=== PATIENT | male | born 1935 | race Caucasian/White ===

== ENCOUNTER 2024-09-07 05:49 | Outpatient (REF) | payer MEDICARE, SELFPAY ==
[2024-09-07 05:54] LABS: MANUAL DIFF FLAG NO
--- OUTSIDE RECORDS SUMMARY | 2024-09-07 05:54 | XMS_ITS | Continuity of Care Document ---
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 Name Role Phone Not on Staff, PCP Primary Care Physician Unavail able Encounter [facility] [place] Date(s): 08/17/24 - 08/24/[address] [id number] Discharge Disposition: Disch/Trans to IP Rehab or unit w/in Hos Attending Physician: Kaylee Lal MD Admitting Physician: Denny Mendoza MD Referring Physician: Not on Staff, Referring MD Encounter Type: Disch IP Allergies, Adverse Reactions, Alerts No Known Allergies Medications atorvastatin 80 mg oral tablet 1 tablet = 80 mg, By Mouth, Daily, # 30 tablet, 5 Refills, Maintenance, 08/17/24 2:54:00 PM EST, Tablet, Partial fill upon patient request if the prescription is for a schedule II opioid drug. Start Date: 08/17/24 Status: Ordered Quantity: 30.0 Unit: tablet Repeat number: 1 esomeprazole 40 mg oral enteric coated capsule 1 capsule = 40 mg, By Mouth, Daily, # 30 capsule, 0 Refills, Maintenance, 08/17/24 2:55:00 PM EST, EC Capsule, Partial fill upon patient request if the prescription is for a schedule II opioid drug. Start Date: 08/17/24 Status: Ordered Quantity: 30.0 Unit: capsule Repeat number: 1 ezetimibe 10 mg oral tablet 1 tablet = 10 mg, By Mouth, Daily, # 30 tablet, 0 Refills, Maintenance, 08/17/24 2:55:00 PM EST, Tablet, Partial fill upon patient request if the prescription is for a schedule II opioid drug. Start Date: 08/17/24 Status: Ordered Quantity: 30.0 Unit: tablet Repeat number: 1 Potassium/Sodium Phosphates Oral Powder 1 pack/packet, By Mouth, 2 times a day, 0 Refills, Maintenance, 08/23/24 12:46:00 PM EST, Oral Powder, Partial fill upon patient request if the prescription is for a schedule II opioid drug. 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 FINDINGS: LINES AND TUBES: Unchanged pigtail pleural drainage catheter in the right chest. LUNGS AND PLEURA: Overall, likely no significant change in loculated pneumothorax. Hazy opacity in the right lung, consistent with atelectasis. Air-fluid level identified in the lateral projection consistent with developing pleural fluid within the right pneumothorax. The left lung remains clear. No left pneumothorax or significant effusion. HEART, MEDIASTINUM AND JUVENAL: No significant interval change in the cardiomediastinal contours. BONES AND SOFT TISSUES: No acute abnormality. IMPRESSION: 1. Stable right pleural drain. 2. Likely fluid developing in the loculated pneumothorax in the right chest. WSN: [id number] Ordering Physician: Chrystal Beltran Dictated By: Isarel Kwok MD Dictated Date/Time: 08/21/24 5:32 pm Reviewed By: Israel Kwok MD Signed By: Israel Kwok MD Signed Date/Time: 08/21/24 5:32 pm Transcribed By: SACHI Transcribed Date/Time: 08/21/24 5:29 pm * Exam Date Time Procedure Performing Provider Status 08/20/24 11:[address] Chest W/O Contrast Norman Gilmore; Auth (Verified) Notes: (CT Chest W/O Contrast) Reason For Exam: pneumothorax;Other: RESULT: CT Chest W/O Contrast CT Chest W/O Contrast INDICATION: pneumothorax, PF fistula TECHNIQUE: Helical CT scan of the chest without IV contrast, formatted in 3 planes. Weight-based protocol was performed using automatic exposure control. COMPARISON: 08/17/2024 FINDINGS: Traveling Missionary view findings, lines and tubes: Right pleural pigtail catheter. Trachea and airways: Patent without evidence of tracheal or endobronchial lesion. Lungs and pleura: Significantly decreased right pleural effusion, with small amount of residual right pleural effusion. Moderate amount of pneumothorax on the right. Right pleural thickening with more focal nodular opacity in the periphery of the right upper lobe measuring 2.4 x 1.9 x 2.9 cm. Thereis associated volume loss and swelling of the bronchovascular vasculature. The right lung has significantly reinflated on comparison CT. Left lung and pleural space are clear aside from mild dependent atelectasis. Mediastinum and juvenal: No mass or hematoma. No mediastinal or hilar lymphadenopathy. No esophageal abnormality. Heart: Heart is normal in size. No pericardial effusion. Severe coronary artery calcification. Aorta: Moderate vascular calcification but no aneurysm. Pulmonary arteries: Normal caliber. Chest wall soft tissues: No acute abnormality. Diaphragm: Intact. Upper abdomen: Gallbladder contains vicariously excreted contrast. Subcentimeter hepatic hypodensities, too small to characterize. Bones: No acute abnormality. Degenerative changes of the spine. IMPRESSION: Significantly decreased right pleural effusion with persistent right hydropneumothorax. No bronchopleural fistula identified. Nodular opacity in the periphery of the right upper lobe could be round atelectasis or neoplasm. Recommend attention on follow-up. If warranted, PET/CT could be considered. WSN: [id number] Ordering Physician: Paco Osorio Dictated By: Cisco Noe MD Dictated Date/Time: 08/20/24 11:54 a Reviewed By: Cisco Noe MD Signed By: Cisco Noe MD Signed Date/Time: 08/20/24 11:54 am Transcribed By: SACHI Transcribed Date/Time: 08/20/24 11:48 am * Exam Date Time Procedure Performing Provider Status 08/20/24 7:50 AM Chest Portable Joanna Donald; Auth ( Verified) Notes: (Chest Portable) Reason For Exam: change in pneumothorax;Other: RESULT: Chest Portable Chest Portable semiupright at 7:41 AM Reason: change in pneumothorax; Clinical Question(s): Pneumothorax COMPARISON: Chest radiograph 08/19/2024 and multiple priors FINDINGS: LINES AND TUBES: Right pigtail pleural catheter at the lower hemithorax. LUNGS AND PLEURA: Slightly decreased right basilar pneumothorax. Resolution of the right pleural effusion. Airspace opacity at the right lung base, unchanged, likely atelectasis. HEART, MEDIASTINUM AND JUVENAL: Heart is normal in size. Aorta is mildly calcified. BONES AND SOFT TISSUES: No acute abnormality. IMPRESSION: Slightly decreased right basilar pneumothorax. Resolution of the right pleural effusion. I have personally reviewed the images and I agree with this report. WSN: [id number] Ordering Physician: Paco Osorio Dictated By: Betty Le MD Dictated Date/Time: 08/20/24 8:35 am Reviewed By: Erick Rangel MD Signed By: Erick Rangel MD Signed Date/Time: 08/20/24 8:40 am Transcribed By: SACHI Transcribed Date/Time: 08/20/24 8:24 am * Exam Date Time Procedure Performing Provider Status 08/19/24 11:47 AM Chest Portable Maggy Stuart; Modified Notes: (Chest Portable) Reason For Exam: Effusion f/u;Tube Placement ADDENDUM: Chest Portable The initial impression is correct with error in the body of the report, the corrected report is as follows: Chest Portable Reason: Tube Placement; Effusion f u; Clinical Question(s): Line Placement; Effusion f u COMPARISON: 08/17/2024 FINDINGS: LINES AND TUBES: Right-sided pigtail type catheter directed at the lower hemithorax medially LUNGS AND PLEURA: Interval decrease in right-sided pleural effusion with trace pleural fluid and with increase in pneumothorax, moderate in volume. Partially atelectatic right lung. No tension component with slight rightward cardiomediastinal shift persisting. HEART, MEDIASTINUM AND JUVENAL: Heart is normal in size. No change BONES AND SOFT TISSUES: No acute abnormality. IMPRESSION: Interval decrease in right-sided pleural effusion with trace pleural fluid and with moderate pneumothorax volume. Partially atelectatic right lung. No tension component with slight rightward cardiomediastinal shift persisting. This RIGHT pneumothorax is at the right lung base. Confirmation of moderate pneumothorax was made to Dr. Paco Helbig at 1559 on day of exam. WSN: [id number] Ordering Physician: Magdiel Fritz Dictated By: Lyndsay Fontana MD Dictated Date/Time: 08/19/24 4:03 pm Reviewed By: Lyndsay Fontana MD Signed By: Lyndsay Fontana MD Signed Date/Time: 08/19/24 4:03 pm Transcribed By: SACHI Transcribed Date/Time: 08/19/24 3:58 pm RESULT: Chest Portable Chest Portable Reason: Tube Placement; Effusion f u; Clinical Question(s): Line Placement; Effusion f u COMPARISON: 08/17/2024 FINDINGS: LINES AND TUBES: Right-sided pigtail type catheter directed at the lower hemithorax medially LUNGS AND PLEURA: Interval decrease in right-sided pleural effusion with trace pleural fluid and with increase in pneumothorax, moderate in volume. Partially atelectatic right lung. No tension component with slight rightward cardiomediastinal shift persisting. No pneumothorax. HEART, MEDIASTINUM AND JUVENAL: Heart is normal in size. No change BONES AND SOFT TISSUES: No acute abnormality. IMPRESSION: Interval decrease in right-sided pleural effusion with trace pleural fluid and with increase in pneumothorax with moderate pneumothorax volume. Partially atelectatic right lung. No tension component with slight rightward cardiomediastinal shift persisting. WSN: [id number] Ordering Physician: Magdiel Fritz Dictated By: Lyndsay Fontana MD Dictated Date/Time: 08/19/24 2:09 pm Reviewed By: Lyndsay Fontana MD Signed By: Lyndsay Fontana MD Signed Date/Time: 08/19/24 2:09 pm Transcribed By: SACHI Transcribed Date/Time: 08/19/24 2:08 pm * Exam Date Time Procedure Performing Provider Status 08/17/24 7:06 PM Chest Portable Kristofer , Carolina; Auth (Verified) Notes: (Chest Portable) Reason For Exam: Pleuritic Pain RESULT: Chest Portable Chest Portable Reason: Pleuritic Pain; Clinical Question(s): Pneumothorax COMPARISON: Priors, most recent dated earlier the same day FINDINGS: LINES AND TUBES: Right-sided pigtail drainage catheter again noted, terminating in the medial aspect of the lower hemithorax. LUNGS AND PLEURA: There is interval decrease in the previously noted large right-sided pleural effusion, now moderatein size, with partial aeration of the right mid to upper lung . No focal opacity in the left lung. No left pleural effusion. No pneumothorax. HEART, MEDIASTINUM AND JUVENAL: Heart is normal in size. Normal mediastinal and hilar contour. BONES AND SOFT TISSUES: No acute abnormality. IMPRESSION: Right-sided chest tube in situ Decrease in the right-sided pleural effusion with partial aeration of the right mid to upper lung, with persistent moderate right pleural effusion. No pneumothorax. WSN: [id number] Ordering Physician: Ulises Bautista Dictated By: Marlyn Corey MD Dictated Date/Time: 08/17/24 7:08 pm Reviewed By: Marlyn Corey MD Signed By: Marlyn Corey MD Signed Date/Time: 08/17/24 7:08 pm Transcribed By: SACHI Transcribed Date/Time: 08/17/24 7:06 pm * Exam Date Time Procedure Performing Provider Status 08/17/24 1:[address] Chest W/ Contrast Sumi Mercado; Auth (Verified) Notes: (CT Chest W/ Contrast) Reason For Exam: malignant effusion s/p pigtail, hx underlying lung malignancy;Other: RESULT: CT Chest W/ Contrast CT Chest W/ Contrast INDICATION: Reason: hx of underlying lung malignancy with malignant effusions [facility]. Malignant effusion s p pigtail, hx underlying lung malignancy; Clinical Question(s): Interstitial Alveolar Infiltration; Order Comment: TECHNIQUE: Helical CT scan of the chest with IV contrast, formatted in 3 planes. 75 cc of Isovue 300 was administered intravenously. Weight-based protocol was performed using automatic exposure control. COMPARISON: Chest radiograph 08/17/2024 FINDINGS: Traveling [employer] view findings, lines and tubes: Right pigtail catheter terminating in the right anterior pleural space Trachea and airways: Trachea and left main stem bronchi are patent. Lungs and pleura: Complete collapse of the right lung due to massive low density right pleural effusion. No definite mass is seen. Few micronodules in the left lung. No pneumothorax. Mediastinum and juvenal: No mass or hematoma. No mediastinal or hilar lymphadenopathy. No esophageal abnormality. Partially imaged thyroid is unremarkable. Heart: Heart is normal in size. No pericardial effusion. Severe coronary artery calcification. Aorta: Moderate vascular calcification but no aneurysm. Pulmonary arteries: Normal caliber. No evidence of pulmonary embolism on this study performed without angiographic technique. Chest wall soft tissues: No acute abnormality. Diaphragm: Intact. Upper abdomen: 2.7 cm gas-filled outpouching with arising from the medial aspect of the proximal degenerative territory representing a diverticulum (201:114). No surrounding inflammatory stranding. Subcentimeter hypodensity in the left hepatic lobe is too small to characterize. Colonic diverticulosis. Bones: No acute abnormality. Degenerative changes of the visualized spine. IMPRESSION: Complete collapse of the right lung due to large pleural effusion with placement of right pigtail catheter terminating in the anterior right pleural space. No pneumothorax. Please ensure pleural catheter is functioning properly and correlate with pleural fluid cytology. I have personally reviewed the images and I agree with this report. WSN: [id number] Ordering Physician: Leonel Rhodes Dictated By: Nasra Olmos DO Dictated Date/Time: 08/17/24 2:20 pm Reviewed By: Cisco Ramos MD Signed By: Cisco Ramos MD Signed Date/Time: 08/17/24 2:25 pm Transcribed By: SACHI Transcribed Date/Time: 08/17/24 2:02 pm * Exam Date Time Procedure Performing Provider Status 08/17/24 11:30 AM Chest Portable Shady , Fern; Auth (Verified) Notes: (Chest Portable) Reason For Exam: s/p chest tube;Tube Placement RESULT: Chest Portable Chest Portable Hx of Present Illness: see brianda level 1; Reason: Tube Placement; s p chest tube; Clinical Question(s): Tube Placement COMPARISON: 08/17/2024 chest radiograph. FINDINGS: LINES AND TUBES: A right-sided chest tube overlies the right midlung. LUNGS AND PLEURA: Complete opacification of the right hemithorax, representing a combination of atelectasis, consolidation and/or effusion similar to prior study. Left lung is clear. HEART, MEDIASTINUM AND JUVENAL: Heart is normal in size. Normal mediastinal and hilar contour. BONES AND SOFT TISSUES: No acute abnormality. IMPRESSION: Complete opacification of the right hemithorax, similar to prior study. Chest tube has been placed. WSN: [id number] Ordering Physician: Leonel Rhodes Dictated By: Kodak Mcclendon MD Dictated Date/Time: 08/17/24 1:02 pm Reviewed By: Kodak Mcclendon MD Signed By: Kodak Mcclendon MD Signed Date/Time: 08/17/24 1:02 pm Transcribed By: SACHI Transcribed Date/Time: 08/17/24 1:01 pm * Exam Date Time Procedure Performing Provider Status 08/17/24 10:38 AM Chest Portable Fern Caruso; Beth (Verified) Notes: (Chest Portable) Reason For Exam: Shortness of Breath RESULT: Chest Portable Examination: Portable chest performed on 08/17/2024. History: Shortness of breath. Findings: A frontal view of the chest is submitted without comparison. The cardiac silhouette is obscured secondary to complete obscuration of the right thorax. Shift of the trachea to the left is present. The left lung is clear. The osseous structures are unremarkable. IMPRESSION: Complete opacification of the right thorax with mass effect on the mediastinum. This could be secondary to a large pleural effusion or mass. CT is recommended for further evaluation. WSN: [id number] Ordering Physician: Demar Ellis Dictated By: Ashley Perkins MD Dictated Date/Time: 08/17/24 10:59 a Reviewed By: Ashley Perkins MD Signed By: Ashley Perkins MD Signed Date/Time: 08/17/24 10:59 am Transcribed By: SACHI Transcribed Date/Time: 08/17/24 10:58 am Vital Signs Most recent to oldest [Reference Range]: 1 2 3 Height 167 cm (08/24/24 2:53 PM) 167 cm (08/24/24 12:04 PM) 167 cm (08/24/24 8:15 AM) Weight 80.7 kg (08/24/24 6:26 AM) 80.9 kg (08/23/24 6:34 AM) 80.9 kg (08/22/24 7:04 AM) Oxygen Saturation [94-100 %] 97 % (08/24/24 2:53 PM) 96 % (08/24/24 12:04 PM) 96 % (08/24/24 8:15 AM) Pulse Rate [55-90 bpm] 90 bpm (08/24/24 2:53 PM) 86 bpm (08/24/24 12:04 PM) 82 bpm (08/24/24 8:15 AM) Body Mass Index [18.5-24.99 kg/m2] 34.42 kg/m2 *>HHI* (08/17/24 2:35 PM) Blood Pressure [90-138/55-84 mm Hg] 122/61mm Hg (08/24/24 2:53 PM) 130/61mm Hg (08/24/24 12:04 PM) 130/64mm Hg (08/24/24 8:15 AM) Respiratory Rate [16-30 br/min] 20 br/min (08/24/24 2:53 PM) 20 br/min (08/24/24 12:04 PM) 20 br/min (08/24/24 8:15 AM) Temperature [96.8-100.4 DegF] 98.6 DegF (08/24/24 2:53 PM) 97.9 DegF (08/24/24 12:04 PM) 97.3 DegF (08/24/24 8:15 AM) Liters per Minute 2 L/min (08/22/24 3:00 AM) 2 L/min (08/21/24 11:00 PM) 2 L/min (08/21/24 7:00 PM) Mode of Delivery (Oxygen) Room air (08/24/24 2:53 PM) Room air (08/24/24 12:04 PM) Room air (08/24/24 8:15 AM) Blood pressure sites Arm, right (08/24/24 2:53 PM) Arm, right (08/24/24 12:04 PM) Arm, right (08/24/24 8:15 AM) Temperature Route Oral (08/24/24 2:53 PM) Oral (08/24/24 12:04 PM) Oral (08/24/24 8:15 AM) Dry Weight 96 kg (08/17/24 2:35 PM) 86.1 kg (08/17/24 1:52 PM) 86.1 kg (08/17/24 1:47 PM) Weight Obtained Via Bed scale (08/24/24 6:26 AM) Bed scale (08/23/24 6:34 AM) Bed scale (08/22/24 7:04 AM) Consult note * Fletcher Souza MD: PERFORM Event Display: Consult Authored Date: [id number] Patient: ??NATO SCHROEDER ? Age:??89 Years?Sex:??Male?:??1935?? Chief Complaint/Reason for Consult Malignant pleural effusion,??pneumothorax ex vacuo History of Present Illness Mr. Schroeder is an 89-year-old male with history of prostate cancer s/p prostatectomy, carotid artery stenosis s/p CEA, CKD, and malignant pleural effusions who presented to [facility] with altered mental status,??hypertension,??bradycardia??thought to be 2/2??a vagal response from pleural effusion??volume. ??Thoracic surgery is consulted given??significant pneumothorax ex vacuo??with??pigtail catheter already in place??on the right. ??He is s/p??transcutaneous pacing and has been??weaned off of??pressors and oxygen completely.?? CT??chest obtained??today demonstrating??persistent right hydropneumothorax. ??The patient is??comfortable??on room air with some pain associated with the chest tube.??He denies shortness of breath,??chest pain,??fever chills, nausea or vomiting. Review of Systems 12 point ROS completed. Negative unless otherwise stated in HPI/subjective. Physical Exam Vitals & Measurements T:??98.3?F?? HR:??83??(Monitored)?? RR:??20?? BP:??94/62?? SpO2:??92%?? HT:??167??cm?? WT:??80.9??kg?? BMI:??34.42?? GENERAL: Alert and oriented to person, place, and time. No acute cardiopulmonary distress. Well developed & nourished. MENTAL STATUS:?? Normal affect. HEENT: Normocephalic. Extraocular muscles intact. Anicteric sclera. Ears without masses, lesions ordeformities. NECK: Supple, Full range of motion. No tracheal deviation, JVD, or palpable cervical lymphadenopathy. LUNGS: Nonlabored and symmetric on room air. ??Right pigtail chest tube in place??with??700 cc of serosanguineous output,??tube kinked??on exam.?? Unkinked and flush with??potts of air and??consistentexpiratory airleak??following. HEART: Regular rate and rhythm CHEST WALL: No surgical scars or chest wall deformities. ABDOMEN: Soft, non-tender, non-distended. NEUROLOGIC: No focal neurological deficits. Moves all extremities spontaneously. Sensation intact bilaterally. SKIN: No rashes or lesions. No petechiae or purpura. No edema. EXTREMITIES: Warm and well perfused. No gross deformities. Normal range of motion. Assessment/Plan Mr. Schroeder is an 89-year-old male with history of prostate cancer s/p prostatectomy, carotid artery stenosis s/p CEA, CKD, and malignant pleural effusions who presented to [facility] with altered mental status,??hypertension,??bradycardia??thought to be 2/2??a vagal response from pleural effusion??volume. ??Thoracic surgery is consulted given??significant pneumothorax ex vacuo??with??pigtail catheter already in place??on the right. ??He is s/p??transcutaneous pacing and has been??weaned off of??pressors and oxygen completely.?? CT??chest obtained??today demonstrating??persistent right hydropneumothorax. ??The patient is??comfortable??on room air. ??On evaluation the??right sided pigtail was??kinked and therefore not allowing??drainage of the pneumothorax.?? I flushed and unkinked the tube??which allowed for a large potts of air and??then a??consistent expiratory airleak. ??If the extent of the pneumothorax continues, the lung is likely trapped in??will not reexpand with a tube. ?? Recommendations: ??? Ensure current chest tube??is working properly ??? Consider IR guided Aspira catheter drain??for long-term management of the effusion ?? Discussed with Dr. Novoa Thoracic [id number] ?? Problem List/Past Medical History Ongoing Obese class I Procedure/Surgical History No qualifying data available. Home Medications Aspirin: 325 mg = 1 capsule, By Mouth, Daily Atorvastatin: 80 mg = 1 tablet, By Mouth, Daily Esomeprazole: 40 mg = 1 capsule, By Mouth, Daily Ezetimibe: 10 mg = 1 tablet, By Mouth, Daily Hydrochlorothiazide-Lisinopril: 1 tablet, By Mouth, Every 12 hours Metoprolol: 25 mg = 1 capsule, By Mouth, Daily Allergies NKA Family History No family history recorded. Lab Results Labs Last 24 Hours BLOOD COUNT & DIFF ? Event Name?? Event Result?? Date/Time?? WBC 8.3 k/mm3 08/20/24 04:35:00 RBC 3.5 m/mm3??Low 08/20/24 04:35:00 Hgb 10.4 Gm/dL??Low 08/20/24 04:35:00 Hct 32.5 %??Low 08/20/24 04:35:00 MCV 92.9 femtoliters 08/20/24 04:35:00 MCH 29.7 pg 08/20/24 04:35:00 MCHC 32 Gm/dL??Low 08/20/24 04:35:00 Platelet Count 187 k/mm3 08/20/24 04:35:00 MPV 11 femtoliters 08/20/24 04:35:00 Nucleated RBC (Automated) 0 #/100 WBC'S 08/20/24 04:35:00 ? CHEM GENERAL ? Event Name?? Event Result?? Date/Time?? Sodium 141 mmol/L 08/20/24 04:35:00 Chloride 107 mmol/L 08/20/24 04:35:00 Bicarbonate Level 21 mmol/L??Low 08/20/24 04:35:00 Anion Gap 13 08/20/24 04:35:00 Glucose Level 105 mg/dL??High 08/20/24 04:35:00 BUN 39 mg/dL??High 08/20/24 04:35:00 Creatinine-Blood 1.78 mg/dL??High 08/20/24 04:35:00 ? * Liam Nascimento MD: PERFORM Event Display: Consultation Note Authored Date: Patient: ??MARILYN SCHROEDERMOND ? Age:??89 Years?Sex:??Male?:??1935?? Indication for Consult see brianda level 1 History of Present Illness/Interval History [facility] Cardiology Consult Note Consult Reason: Mobitz I + II Outpatient University Librarian: None Requesting Provider: Dr Osorio Consulting Physician: Dr Tripp ?? 89-year-old male with history of prostate cancer s/p prostatectomy 1998, carotid artery stenosis s/p endarterectomy 2016, hyperlipidemia, and CKD3b, and??thoracic malignant effusions undergoing workup at [facility] -initially presented for AMS, hypotension, bradycardia. ??Was called??by EMS in the field initially noting??bradycardia??in 30s with junctional rhythm??and was??transcutaneously paced.?? Whenhe arrived to ED??he was briefly taken off pacing??and again became bradycardic/hypotensive??then restarted and put on Levophed drip. ??Had workup noting chest x-ray showing a large??pleural effusionwith mediastinal shift??which was decompressed??in the emergency room??with 1 L removed. ??His bradycardia then improved??but was still requiring??vasopressors??after additional IVF given.?He initially had EKG??showing sinus rhythm??at??11 AM ?? On admission, was admitted to MICU for shock suspected??secondary to bradycardia??which was in setting of??vagal??response from pleural effusion.?? Both his shock and bradycardia??improved??after thoracentesis.?In the evening at 2231??noted??to have??concern for AV block??on??telemetry. ??EKG performed at the time??showing sinus rhythm??Mobitz type I block.?? Review of telemetry??overnight andEKG performed at bedside??still with persistent Mobitz type I ? Speaking with the patient, his ,??daughter??he was having some dizziness at home. ??He is largely sedentary. ??No syncope. ??He was brought to the hospital for acute onset of dyspnea ? In his background,??has a history of malignant pleural effusions.?? Had an IR thoracentesis performed 08/05/2024 with 1 L dark red fluid removed.?? Is pending VATS pleural biopsy??for diagnosis??and??palliation of symptoms with [facility]. ?? Cardiac Home Meds:??Atorvastatin 80,??Zetia,??HCTZ???lisinopril 25???20,??MS 25 Current Meds (different than above):??Atorvastatin 80,??holding??home metoprolol/HCTZ/lisinopril ?? Data Reviewed: ???Vitals:??Heart rate 66???96??since being admitted to ICU. ??BP??80???110/35???65??[currently??99/55], 2 L nasal cannula ??? Labs:??Creatinine 2.15 ??? ECG:??Mobitz 1???2 heart block Review of Systems Constitutional, Eye, Skin, Head/Neck, ENMT, Respiratory, Cardiovascular, Gastrointestinal, Endocrine, Musculoskeletal, Neurologic, Psych reviewed and negative except as noted in HPI Physical Exam Vitals & Measurements T:??98.5?F?? HR:??86??(Monitored)?? RR:??18?? BP:??103/43?? SpO2:??93%?? HT:??167??cm?? WT:??81.4??kg?? BMI:??34.42?? Weight lb/oz: 179 lb 7 oz General Appearance: The patient is in NAD. Cardiovascular: RRR S1 and S2 heard with no M/R/G. No JVD. Respiratory:?Breath sounds clear to auscultation bilaterally. No wheezing. Good air movement throughout both lungs. MS:?No edema or erythema in the lower extremities. No wounds seen on the feet. Peripheral sensation intact.?? Neuro:?No slurred speech.?Patient seen moving their upper and lower extremities independently. Psych: Alert and oriented x3. Appropriate and pleasant. CAM negative. Assessment/Plan Orders: Echo Complete 89-year-old male with history of prostate cancer s/p prostatectomy 1998, carotid artery stenosis s/p endarterectomy 2017, hyperlipidemia, and CKD3b, and??thoracic malignant effusions undergoing workup at [facility] -for bradycardia??initially attributed to??vagal??compression by??pleural effusion.?? 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 ??He is asymptomatic currently but??was??feeling lightheaded at home prior to hospital presentation. ?? Initially??bradycardia was??attributed??to vagal compression by pleural effusion which may have very well been the case but it is unclear??given symptoms of dizziness at home??whether??heart block??proceeded hospital admission??or??occurred??during it. ??In any case??no high-grade??AV block is no champ,??on review of telemetry and EKG??have seen??exclusively Mobitz type I.?? Her metoprolol has been held so far??which I agree with.?? Favor continued monitoring??for now??and if??worsening??degreeof heart block??or convincing symptoms occur??we will reevaluate. ?? #Mobitz I-II HB #Pleural effusion, likely malignant ?? Recommendations: ???Keep on telemetry ???Daily EKG ???Avoid AV zoltan??blocking medications ???No indication for pacemaker currently ???We will get TTE ?? We will continue to follow ?? Findings and plan of care was discussed and agreed on with Dr. Tripp ?? Liam Nascimento MD Cardiovascular Disease Fellow, PGY-4 [facility] Connect / Pager: [phone] Allergies NKA Home Medications Aspirin: 325 mg = 1 capsule, By Mouth, Daily Atorvastatin: 80 mg = 1 tablet, By Mouth, Daily Esomeprazole: 40 mg = 1 capsule, By Mouth, Daily Ezetimibe: 10 mg = 1 tablet, By Mouth, Daily Hydrochlorothiazide-Lisinopril: 1 tablet, By Mouth, Every 12 hours Metoprolol: 25 mg = 1 capsule, By Mouth, Daily Hospital Medications Medications (8) Active SCHEDULED: (5) Atorvastatin 80 mg Tablet (atorvastatin 80 mg oral tablet) ??80 mg, By Mouth, Daily Calcium Gluconate (Calcium Gluconate Inj) ??1,000 mg, IV Push Slowly, Once Lansoprazole 30 mg OD Tablet (Lansoprazole OD Tablet) ??30 mg, By Mouth, Daily Lidocaine 5% Topical Patch (Lidocaine 5% Patch) ??2 each, Topically, Daily Remove Patch (Remove Lidocaine Patch) ??1 each, Topically, Daily at bedtime CONTINUOUS: (0) PRN: (3) Acetaminophen 325 mg Tablet (Acetaminophen Tablet) ??650 mg, By Mouth, Every 6 hours MorPHINE 2 mg Inj Syringe (MorPHINE Inj) ??2 mg, IV Push Slowly, Every 4 hours Ondansetron 2mg/mL Inj (2mL Vial) (Zofran Inj) ??4 mg, IV Push, Every 6 hours Lab Results Cardiology Labs WBC: 9.5 k/mm3 (08/18/24) RBC:??3.39 m/mm3??Low (08/18/24) Hgb:??10.3 Gm/dL??Low (08/18/24) Hct:??31.2 %??Low (08/18/24) MCV: 92 femtoliters (08/18/24) MCH: 30.4 pg (08/18/24) MCHC: 33 Gm/dL (08/18/24) Platelet Count: 212 k/mm3 (08/18/24) RDW-SD: 46.3 femtoliters (08/18/24) Nucleated RBC (Automated): 0 #/100 WBC'S (08/18/24) Abs. Neut: 6.1 k/mm3 (08/17/24) Abs. Lymph: 1.3 k/mm3 (08/17/24) Abs. Taylor: 0.9 k/mm3 (08/17/24) Abs. Eo: 0 k/mm3 (08/17/24) Abs. Baso: 0 k/mm3 (08/17/24) Neut %: 72.4 % (08/17/24) Taylor %:??10.7 %??High (08/17/24) Eos %: 0.4 % (08/17/24) Baso %: 0.2 % (08/17/24) Imm Gran: 0.7 % (08/17/24) Abs. Imm Gran: 0.1 k/mm3 (08/17/24) Sodium: 141 mmol/L (08/18/24) Potassium: 4.4 mmol/L (08/18/24) Chloride: 107 mmol/L (08/18/24) Bicarbonate Level:??21 mmol/L??Low (08/18/24) Glucose Level: 74 mg/dL (08/18/24) BUN:??46 mg/dL??High (08/18/24) Creatinine-Blood:??2.15 mg/dL??High (08/18/24) Calcium:??8.4 mg/dL??Low (08/18/24) Protein, Total:??5.8 Gm/dL??Low (08/18/24) Albumin: 3.4 Gm/dL (08/17/24) CK, Total: 70 units/L (08/17/24) Cholesterol: 48 mg/dL (08/17/24) Triglycerides: 34 mg/dL (08/17/24) TSH: 1.22 uIU/mL (08/17/24) Diagnostic Impression ECG ECG 12-Lead ?? 22:31:16 Please click on pdf link to open report ?? Signed By: Gaudencio Marrero DO ?? ECG 12-Lead ?? 22:31:16 Ventricular Rate: 80 BPM Atrial Rate: 99 BPM P-R Interval: 214 ms QRS Duration: 88 ms Q-T Interval: 384 ms QTC Calculation(Bazett): 442 ms P [place]: 54 degrees R [place]: 62 degrees T [place]: 37 degrees Sinus rhythm with 2nd degree A-V block (Mobitz II) Abnormal ECG When compared with ECG of 17-Aug-2024 10:58, Sinus rhythm is now with 2nd degree A-V block (Mobitz II) Nonspecific T wave abnormality has replaced inverted T waves in Inferior leads QT has shortened Confirmed by GAUDENCIO MARRERO MD ([id number]) on 08/18/2024 2:27:06 PM ?? Lindsay: GAUDENCIO MARRERO MD ?? Signed By: Gaudencio Marrero DO Problem List/Past Medical History Ongoing Obese class I Procedure/Surgical History No qualifying data available. Family History No family history recorded. * Josee MUSTAFA, Mary Manning: PERFORM Event Display: Consultation Note Authored Date: Attending Attestation: I have seen and evaluated this patient.?? I have discussed the case and its management with the resident and agree with the findings and plan as documented in the resident???s note. Laboratory * Event Display: Cytology Reports General Authored Date: Patient Name: NATO SCHROEDER Patient : 1935 (Age: 89) Lab Collection Date: 08/20/2024 Accession Date: 08/20/2024 Sign Out Date: 08/24/2024 Tissue Source: 1: PLEURAL FLUID, RIGHT: Final Diagnosis: PLEURAL FLUID, RIGHT: NEGATIVE FOR MALIGNANT CELLS. Rare mixed inflammatory cells present. Material insufficient for cell block preparation. The specimen processing and screening performed at [facility], [address] [place] [address] (CLIA#[id number]). [facility] Clinical History: Date of Last Menstrual Period: not available Menstrual History: not available Contraceptive History: not available Ancillary Testing: not available Clinical History (other): Right chest tube site. Gross Description: Received 5cc of red, opaque fluid 1 ThinPrep cellular enhancement technique Cell block Quantity not sufficient. -08/20/24 Primary Pathologist: Aicha Benjamin M.D. Phone #: [phone], On-Call Pathologist: [id number] History and physical note * Paco Thomason DO: PERFORM Event Display: History and Physical Hospital Authored Date: Patient: ??NATO SCHROEDER ? Age:??89 Years?Sex:??Male?:??1935?? Chief Complaint/Reason for Consultation Transfer to medicine service History of Present Illness 89-year-old gentleman with a history of??remote prostate cancer s/p prostatectomy??in remission,??carotid artery stenosis s/p CEA,??stage IIIb chronic kidney disease, hypertension, hyperlipidemia, GERD and pleural effusion followed by [facility] thoracic surgery thought to possibly be malignant.?? He alvaro gerber presented to our emergency department 08/17??with hypotension and a syncopal episode??and bradycardia. ??He was admitted to the MICU.?? It is thought that perhaps his syncopal episode was related to??large pleural effusion??with a vagal response.?? Chest tube is in place and he was transferred to the medical floor??last night.?? He currently states that he feels well??although overnight he did have respiratory rates into the 30s.?? On evaluation it was determined that his chest tube was??kinked??and upon??relieving this his respiratory rate improved.?? His grandson is at the bedside??andfeels that??Nato is??slower to respond.?? His nurse caring for him today??feels that he was doing better yesterday as well.?? There have been no fevers or chills.?? He is??on 1 L/min via nasal cannula and maintaining SpO2??97%.?? Nato has no acute complaints. ?? B records??reviewed.?? Nato states that he was supposed to have a VATS procedure??earlier this month, but this was delayed??because of the wedding. ??He is now supposed to have a VATS procedure??08/25.?? Review of??pleural fluid??cytology??shows that??there have been no malignant cells found. Review of Systems Pertinent positive and negatives are noted in the history of?? present illness. Otherwise, a completed review of systems was completed and is negative. Objective Vital Signs?? Temperature: 98.1 DegF (08/21/24 07:00:00) Temperature Route: Axillary (08/21/24 07:00:00) Pulse Rate: 83 bpm (08/21/24 07:00:00) Heart Rate Monitored: 87 bpm (08/20/24 15:00:00) Respiratory Rate: 18 br/min (08/21/24 07:00:00) Systolic Blood Pressure: 122 mm Hg (08/21/24 07:00:00) Diastolic Blood Pressure: 64 mm Hg (08/21/24 07:00:00) Blood pressure sites: Arm, right (08/21/24 07:00:00) Pulse Pressure: 58 mm Hg (08/21/24 07:00:00) Oxygen Saturation: 100 % (08/21/24 07:00:00) Liters per Minute: 1 L/min (08/21/24 07:00:00) Mode of Delivery (Oxygen): Nasal cannula (08/21/24 07:00:00) Early Warning Score: 0 (08/21/24 07:32:04) ? Physical Exam Constitutional: Alert. Well developed and well nourished. In no acute distress.?? Tired appearing. Head: Normocephalic. Eyes: Pupils are equal, round and reactive to light.?? Ear, Nose and Throat: Mucous membranes moist. Trachea midline. Neck: Supple, Full range of motion.??No JVD or bruits. Respiratory:??Clear to auscultation. No wheezing or rhonchi.??No use of accessory muscles.?? Chest tube on the right draining serosanguineous fluid. Cardiovascular:??Rate regular. Rhythm regular. No murmurs, rubs or gallops. Gastrointestinal:??Abdomen soft, non-tender, non-distended. Normal bowel sounds. Genitourinary:??No costovertebral angle tenderness. Extremities: No lower extremity pitting edema. No cyanosis or clubbing. Neurologic:??AAOx3, Cranial nerves II-XII grossly intact. Speech normal, no facial droop.?? Grandson states that he is slow to respond, but I do not??notice anything marked. Skin:??No rash.?? Musculoskeletal:??No gross deformities on inspection.?? Heme/Lymphatics:??Palpation of neck reveals no swelling or tenderness of neck nodes.?? Psychiatric: Normal mood and affect. Assessment/Plan Diagnoses Moderate malnutrition ??(E44.0) 1. ??Vasovagal syncope ??(R55) 2. ??Atrioventricular block, second degree ??(I44.1) 3. ??Acute hypoxic respiratory failure ??(J96.01) 4. ??Exudative pleural effusion ??(J90) 5. ??Stage 3b chronic kidney disease ??(N18.32) ?? Assessment:??89-year-old gentleman with a history of??remote prostate cancer s/p prostatectomy??in remission,??carotid artery stenosis s/p CEA,??stage IIIb chronic kidney disease, hypertension, hyperlipidemia, GERD and pleural effusion followed by [facility] thoracic surgery thought to possibly be malignant.??He initially presented to our emergency department 08/17??with hypotension and a syncopal episode??and bradycardia.??Now transferred from??MICU to medicine service ?? Vasovagal syncope (R55):??Thought to be related to??large pleural effusion.??Had an episode of??hypotension overnight responding to IV fluids.??Possibly related to kinking of his??chest tube.??Doing well currently. ?? Acute hypoxic respiratory failure (J96.01):??Currently on 1 L/min via nasal cannula and maintainingSpO2 97%.??This likely will be able to be??weaned off shortly. ?? Exudative pleural effusion (J90):??Thought to have a malignant pleural effusion given??the exudative properties.??Remote history of prostate cancer in remission.??No other active malignancies that are known.??Pleural fluid??obtained??2 weeks ago at[place] [place]had cytology run and this did not have any cancerous cells.??He is supposed to have a VATS??at [facility] [place]08/2024.??He is currently being followed by??thoracic surgery here.??When I was seeing him he was getting ready to go down for daily chest x-ray. ?? Moderate malnutrition (E44.0):??Followed by nutrition ?? Atrioventricular block, second degree (I44.1):??Had an episode??of arrhythmia that appeared to be second-degree heart block.??Evaluated by??cardiology.??They did not feel that this was a high-grade heart block.??Echocardiogram??yesterday suboptimal despite contrast enhancement.??Global??function appeared normal. ?? Stage 3b chronic kidney disease (N18.32):??Renal function stable. ?? Code Status:??DO NOT RESUSCITATE, but okay to intubate ?Order Code Status:??Code Status Ordered ?? Histories Allergies Allergies ?(Active and Proposed Allergies Only) NKA? (Severity: Unknown severity, Onset: Unknown) ? Past Medical History/Problem List Active Problems(7) Atrioventricular block, second degree Essential hypertension Exudative pleural effusion on right GERD - Gastro-esophageal reflux disease History of prostate cancer Hyperlipidemia Obese class I ? Past Surgical History No surgery history documented. ? Social History No social history documented. ? Family History No Family History documented. ? Medications Home Medications Aspirin (aspirin 325 mg oral capsule)?1?capsule?325?Milligram?By Mouth?Daily Atorvastatin (atorvastatin 80 mg oral tablet)?1?tab(s)?80?Milligram?By Mouth?Daily Esomeprazole (esomeprazole 40 mg oral enteric coated capsule)?1?capsule?40?Milligram?By Mouth?Daily Ezetimibe (ezetimibe 10 mg oral tablet)?1?tab(s)?10?Milligram?By Mouth?Daily Hydrochlorothiazide-Lisinopril (hydrochlorothiazide-lisinopril 25 mg-20 mg oral tablet)?1?tab(s)?By Mouth?Every 12 hours Metoprolol (metoprolol succinate 25 mg oral capsule, extended release)?1?capsule?25?Milligram?By Mouth?Daily ? Results Recent Labs BACTERIOLOGY Body Fluid Culture Results Final report ()?? 08/17/2024 14:30 ?? BLOOD COUNT & DIFF WBC 9.3 k/mm3 ()?? 08/21/2024 03:21 RBC 3.45 m/mm3 (Low)?? 08/21/2024 03:21 Hgb 10.4 Gm/dL (Low)?? 08/21/2024 03:21 Hct 31.6 % (Low)?? 08/21/2024 03:21 MCV 91.6 femtoliters ()?? 08/21/2024 03:21 MCH 30.1 pg ()?? 08/21/2024 03:21 MCHC 32.9 Gm/dL (Low)?? 08/21/2024 03:21 Platelet Count 206 k/mm3 ()?? 08/21/2024 03:21 RDW-SD 43.7 femtoliters ()?? 08/21/2024 03:21 MPV 11.1 femtoliters ()?? 08/21/2024 03:21 Nucleated RBC (Automated) 0.0 #/100 WBC'S ()?? 08/21/2024 03:21 Abs. NRBC 0.0 k/mm3 ()?? 08/21/2024 03:21 Abs. Neut 7.3 k/mm3 (High)?? 08/21/2024 03:21 Abs. Lymph 0.8 k/mm3 ()?? 08/21/2024 03:21 Abs. Taylor 1.2 k/mm3 ()?? 08/21/2024 03:21 Abs. Eo 0.0 k/mm3 ()?? 08/21/2024 03:21 Abs. Baso 0.0 k/mm3 ()?? 08/21/2024 03:21 Neut % 78.0 % (High)?? 08/21/2024 03:21 Lymph % 8.9 % (Low)?? 08/21/2024 03:21 Taylor % 12.4 % (High)?? 08/21/2024 03:21 Eos % 0.2 % ()?? 08/21/2024 03:21 Baso % 0.1 % ()?? 08/21/2024 03:21 Imm Gran 0.4 % ()?? 08/21/2024 03:21 Abs. Imm Gran 0.0 k/mm3 ()?? 08/21/2024 03:21 ?? CHEM GENERAL Sodium 139 mmol/L ()?? 08/21/2024 03:21 Potassium 4.0 mmol/L ()?? 08/21/2024 03:21 Chloride 106 mmol/L ()?? 08/21/2024 03:21 Bicarbonate Level 22 mmol/L ()?? 08/21/2024 03:21 Anion Gap 11 ()?? 08/21/2024 03:21 Glucose Level 121 mg/dL (High)?? 08/21/2024 03:21 BUN 31 mg/dL (High)?? 08/21/2024 03:21 Creatinine-Blood 1.54 mg/dL (High)?? 08/21/2024 03:21 Estimated GFR Creatinine 43 ML/MIN/1.73 M2 ()?? 08/21/2024 03:21 Calcium 8.1 mg/dL (Low)?? 08/21/2024 03:21 Protein, Total 5.5 Gm/dL (Low)?? 08/21/2024 03:21 Albumin 2.8 Gm/dL (Low)?? 08/21/2024 03:21 AG Ratio 1.0 ()?? 08/21/2024 03:21 Alkaline Phosphatase 76 units/L ()?? 08/21/2024 03:21 AST (SGOT) 19 units/L ()?? 08/21/2024 03:21 ALT (SGPT) 15 units/L ()?? 08/21/2024 03:21 Bilirubin, Total 0.4 mg/dL ()?? 08/21/2024 03:21 ?? FLUID STUDIES Body Fluid Smear Interpretation Reviewed by pathologist. ()?? 08/17/2024 11:50 ?? URINE OTHER Est Creatinine Clearance 30.22 mL/min ()?? 08/21/2024 04:09 ? Admission evaluation note * Paco Osorio MD: PERFORM, MODIFY, MODIFY Event Display: Admission Note Authored Date: Patient: ??NATO SCHROEDER ? Age:??89 Years?Sex:??Male?:??1935?? Chief Complaint see brianda level 1 History of Present Illness 89-year-old male with history of prostate cancer s/p prostatectomy 1998, carotid artery stenosis s/p endarterectomy 2016, hyperlipidemia, and CKD3b, and??thoracic malignant effusions undergoing workup at [facility] presented by EMS for altered mental status, hypotension, and bradycardia.?? EMS was bradycardic to the 30s with junctional rhythm, started transcutaneous pacing, given 500 mL fluid and 1 mg atropine en route.?? In the ED he was briefly taken off pacing but became bradycardic and hypotensiveagain prompting reinitiation of transcutaneous pacing and start of Levophed drip.?? Chest x-ray obtained showed a large pleural effusion with mediastinal shift that was decompressed by emergent pigtail chest tube, 1 L removed, improved his bradycardia however he was still requiring Levophed even after 2 L additional IVF. Labs notable for CBC within acceptable limits, CMP with bicarb 16, no anion gap, BUN 41, creatinine 2.14 (baseline 1.8 per outside records ), HS-trop 238. ?? Per outside record review patient initially presented with dyspnea and unintended weight loss tohis primary care provider, chest x-ray on 07/22/2024 showed moderate right pleural effusion, and CTAP 07/22 showed no recurrence of his prostate cancer but a large right-sided pleural effusion that was new compared to 2021.?? IR thoracentesis performed 08/05/2024 with removal of 1000 cc of dark redfluid, fluid analysis reportedly suggested exudative effusion and cytology was pending.Scheduled for a??VATS pleural biopsy and talc pleurodesis for diagnosis and for palliation of symptoms with [facility]. Physical Exam Vitals & Measurements T:??91.7?F?? HR:??98??(Peripheral)?? RR:??22?? BP:??91/53?? SpO2:??97%?? WT:??86.1??kg?? General: No acute distress, AAOx3 HEENT: atraumatic/normocephalic, EOMI Cardio: regular rate, no r/g/m, JVD not appreciated Respiratory: decreased breath sounds on right, chest tube right with bloody output. Abdomen: soft and NT Extremities: no peripheral cyanosis or edema Skin: no rashes appreciated Neuro: No gross deficits appreciated, mentation appropriate to situation Assessment/Plan 89-year-old male with history of prostate cancer s/p prostatectomy 1998, carotid artery stenosis s/p endarterectomy 2017, hyperlipidemia, and CKD3b, and??thoracic malignant effusions undergoing workup at [facility] presented by EMS for altered mental status, hypotension requiring levophed, and bradycardiarequiring transcutaneous pacing. After ED draining of pleural effusion, bradycardia resolved, suspect this was a vagal response from the pleural effusion volume. Admitted to MICU for hypotension still requiring levo, which resolved upon arrival to MICU. ?? Plan: Neuro/MAJOR CASE DETECTIVE/psych: # pain: right chest from chest tube. - acetaminophen PRN - lidocaine patches - PRN morphine 4 mg q4h (patient trying to avoid opioids) ?? Cardiovascular: # bradycardia, resolved ??- likely 2/2 vagal response from pleural effusion, temporarily paced, resolved after pleural effusion drainage. ?? # shock, resolved - suspect mainly from bradycardia, had resolved by the time of MICU arrival. ?? #hypothermia reported in ED to 91.7, believe this was likely an error and meant to say 97.1 as I was not told by ED resident about hypothermia and his temperature was near 97-98 upon arrival to MICU without intervention. - TSH & random cortisol ordered, pending. ?? Respiratory: # acute hypoxic respiratory failure - now stable on room air satting 92-94% ?? # pleural effusion: followed at [facility], plan for VATS and talc pleurodesis in near future. - Patient would like to continue his care at [facility] since he has been followed there for a long time, which we agree with. - Will send pleural effusion fluid for cytology and to evaluate for infection. - chest tube currently clamped ?? Gastrointestinal / Fluids, Electrolytes, and Nutrition: - Resume full diet ?? Renal: #CKD3b: baseline reportedly around 1.8??creatinine - 2.14 on arrival, monitor UOP ?? Infectious Disease: - Pleural fluid studies pending ?? Micro Hx: None ?? Antibiotics Hx: None ?? Heme/onc: - holding AC in setting of bloody pleural effusion, assess tomorrow. ?? Endocrine: -Maintain moderate normoglycemia (140-180) ?? Code Status: DNR/ OK to intubate. ?? Disposition: Likely stepdown this evening. ?? Signed: Paco Osorio MD, MSc Critical Care Medicine Fellow [facility] 08/17/2024 13:32 ?? Problem List/Past Medical History Ongoing No qualifying data Medications Inpatient NORepinephrine 4 mg / D5W 250 mL 4 mg, 4 mg= 250 mL, IV Infusion Home No active home medications Allergies No active allergies * Ulises Bautista MD: PERFORM Event Display: Admission Note Authored Date: Patient seen and examined, data reviewed, case and management discussed with the??house staff/fellow/ [employer]/ PA on rounds on the date of service. I confirmed the findings and agree with the documentation of the assessment and plan of care we developed together as detailed??below with the following high lights/additions/modifications. ?? Assessment: acute hypoxemic respiratory failure recurrent exudative effusion ?malignant s/p pigtail drainage sinus bradycardia ? Plan: clamp chest tube after 2L output/ 24hrs - follow up pleural fluid studies, cultures, cytology saturating comfortably on RA encourage enteral intake bradycardia improved s/p drainage?? likely 2/2 vagal stimulation in setting of large effusion 2D ECHO ?? This patient has a critical illness or injury which acutely impairs one or more vital organ systemssuch that there is a high probability of imminent or life threatening deterioration in the patient's condition. ?? Critical Care time = 65 mins.??This time was exclusive of separately reportable procedural time, teaching, and time spent in family discussions. ?? Tanner Bautista M.D. Critical Care Medicine [facility] ?? Available by Cortext & pager ? EKG study * Event Display: ECG 12-Lead Authored Date: Please click on pdf link to open report * Event Display: ECG 12-Lead Authored Date: Ventricular Rate: 88 BPM Atrial Rate: 88 BPM P-R Interval: 174 ms QRS Duration: 90 ms Q-T Interval: 372 ms QTC Calculation(Bazett): 450 ms P [place]: 55 degrees R [place]: 48 degrees T [place]: 16 degrees Normal sinus rhythm Normal ECG When compared with ECG of 23-Aug-2024 07:18, No significant change was found Confirmed by KERRI IRENE MD ([id number]) on 08/24/2024 9:58:24 PM Lindsay: KERRI IRENE MD * Event Display: EKG Authored Date: * Event Display: ECG 12-Lead Authored Date: Please click on pdf link to open report * Event Display: ECG 12-Lead Authored Date: Ventricular Rate: 87 BPM Atrial Rate: 87 BPM P-R Interval: 170 ms QRS Duration: 96 ms Q-T Interval: 380 ms QTC Calculation(Bazett): 457 ms P [place]: 42 degrees R [place]: 53 degrees T [place]: 28 degrees Normal sinus rhythm Normal ECG When compared with ECG of 22-Aug-2024 08:56, No significant change was found Confirmed by Leonel Koch ([id number]) on 08/24/2024 7:17:04 AM Lindsay: Leonel Koch * Event Display: ECG 12-Lead Authored Date: Please click on pdf link to open report * Event Display: ECG 12-Lead Authored Date: Ventricular Rate: 89 BPM Atrial Rate: 89 BPM P-R Interval: 174 ms QRS Duration: 92 ms Q-T Interval: 370 ms QTC Calculation(Bazett): 450 ms P [place]: 44 degrees R [place]: 23 degrees T [place]: 9 degrees Normal sinus rhythm Normal ECG When compared with ECG of 21-Aug-2024 07:52, No significant change was found Confirmed by GAUDENCIO MARRERO MD ([id number]) on 08/22/2024 11:24:27 AM Lindsay: GAUDENCIO MARRERO MD * Event Display: EKG Authored Date: Heart * Event Display: Echocardiogram - Complete Authored Date: Transthoracic Echocardiography Report (TTE) Patient Demographics Patient Name NATO SCHROEDER Date of Study 08/20/2024 Corporate Gender Male Facility Race .[id number] Ethnicity Date of 1935 Height: 65.75 inches Age 89 year(s) Weight: 178.58 pounds Accession Number [id number] BSA: 1.9 m2 Room Number [id number] BMI: 29.05 kg/m2 Referring Not on Staff Referring MD Steve Irene MD Physician Physician Kerri Stevensographer Doron [facility] Bette Indications Arrhythmia. Additional Indications:heart block Clinical History HLD CKD Study Data Type of Study TTE procedure:Echo Complete-(Doppler, Colorflow) with Contrast. Procedure Information:Definity was administered by Community Living Instructor . Study Date08/20/2024 Start Time: 10:30 AM Study Location: [facility] [place] Study Status: ICU/CCU Patient Status: Routine Technical Quality: Inadequate due to poor acoustical window. EKG: Within normal limits HR: 84 bpm Contrast Medium: Definity. Amount - 2 ml Doppler Measurements AV Peak Velocity: 125 cm/s MV Peak E-Wave: 63.4 cm/s AV Peak Gradient: 6.25 mmHg MV Peak A-Wave: 71.1 cm/s MV E/A Ratio: 0.89 LVOT Peak Velocity: 81.4 cm/s LVOT VTI13.7 cm MV Deceleration Time: 232 msec Cardiac Anatomy Left Ventricle/Interventricular Septum The left ventricle is not adequately visualized from any window despite contrast enhancement. Global function appears preserved in foreshortened apical ultrasound enhanced images but ejection fraction cannot be assessed. Left Atrium/Interatrial Septum The left atrium is poorly visualized. Right Ventricle The right ventricle is poorly visualized. Summary The left ventricle is not adequately visualized from any window despite contrast enhancement. Global function appears preserved in foreshortened apical ultrasound enhanced images but ejection fraction cannot be assessed. The right ventricle is poorly visualized. Impressions Inadequate study, no adequate imaging windows obtained. Comparison No prior study available for comparison. Signature * Event Display: Echocardiogram - Complete Authored Date: [id number] Cardiology * Event Display: Cardiac Rhythm Strips Authored Date: * Event Display: Cardiac Rhythm Strips Authored Date: * Event Display: Cardiac Rhythm Strips Authored Date: Hospital Progress note * Vicky Mistry RN: MODIFY, SIGN, PERFORM, SIGN, VERIFY Event Display: Progress Note Hospital Authored Date: Patient: NATO SCHROEDER Age: 89 years Sex: Male : 1935 Associated Diagnoses: None Author: Vciky Mistry RN Findings Problem Related to Alteration in Respiratory Function (new) : Alteration in Respiratory Function/new 08/24/2024 9:00 EST Alteration in Resp Status Related to Other: pleural effusion/ tachypnea/ chest tube Goals & Outcomes, Respiratory Pt will maintain/resume baseline physical assessment, Pt will notdevelop complications r/t mechanical ventilation, Pt will maintain adequate nutritional intake, Pt will maintain/resume normal fluid/electrolyte balance, Pt will not develop complications r/t immobility, Pt will demonstrate proper technique w/self care procedures Interventions, Respiratory Assess for and report S&S of respiratory distress, Position for comfort & optimal oxygenation, Chest tube drainage, maintain drainage/suction as ordered BH Goals/Interventions, Respiratory Yes Respiratory, Problem Start 08/17/2024 17:42 Reviewed Plan with, Respiratory Patient Patient Progression, Respiratory Patient progressing according to plan . Nursing Data Respiratory/Pulmonary Data. : Respiratory/Pulmonary Data. 08/24/2024 12:04 EST Mode of Delivery (Oxygen) Room air 08/24/2024 8:59 EST Respiratory Assessment Comment chest tube in place to suction Left Upper Lobe Breath Sounds Clear Right Upper Lobe Breath Sounds Clear Right Middle Lobe Breath Sounds Clear Respiratory distress None Respiratory WNL except . Vital Signs : VITAL SIGNS SECTION 08/24/2024 12:04 EST Temperature 97.9 DegF Temperature Route Oral Pulse Rate 86 bpm Respiratory Rate 20 br/min Systolic Blood Pressure 130 mm Hg Diastolic Blood Pressure 61 mm Hg Blood pressure sites Arm, right Mean Arterial Pressure 84 mm Hg Pulse Pressure 69 mm Hg Oxygen Saturation 96 % Mode of Delivery (Oxygen) Room air . Narrative/Incidental A&Ox3, bedfast, 2 max assist to commode, denies pain, denies sob, see biophysical for full assessment, tolerating diet, took meds as prescribed, bed in lowest, locked position with call goodson in reach. Patient discharging today, verbalizes understanding of discharge plan, all questions answered,awaiting [facility] for transport to [facility] report called over to KAILEE Vu, left via [facility] 1935.. Discharge Information Case Management Discharge Plan : Case Management Discharge Plan Data 08/24/2024 15:47 EST Discharge Level of Care at Discharge [facility]osp[facility] Facility Discharge Transportation Arranged [phone] Discharge Arranged Transport Date/Time 08/24/2024 17:30 Mode of Transportation Arranged Ambulance Service Comments #1 Ambulance arranged for [facility] transfer at 530pm Rehabilitation Discharge : Rehab Discharge Index 08/23/2024 12:37 EST Walker: distance < 10 08/21/2024 8:29 EST Comments on treatment indicated 89 y/o M c PMH of thoracic malignant effusions admitted for AMS, hypotension and bradycardia requiring transcutaneous pacing. WBAT, fall risk. PT f/u for ther ex, bed mob, transfers, gait,and balance. Rec rehab Distance pt will ambulate 20ft Full chart review completed Yes Hospital course see comment Other findings Pt is a mod complexity eval d/t current medical status and PMH Plan of care PT Gait training, Transfer training, Therapeutic exercise, Functional Activities, Balance training, Neuromuscular education * Lukasz MUSTAFA, [facility]: PERFORM Event Display: Progress Note Hospital Authored Date: Patient: ??NATO SCHROEDER ? Age:??89 Years?Sex:??Male?:??1935?? Subjective Stable, spoke with [facility] and pt accepted Review of Systems All review of systems negative except above Objective Measurements?? Height: 167 cm (08/24/24) Weight: 80.7 kg (08/24/24) Dry Weight: 96 kg (08/17/24) Body Mass Index:??34.42 kg/m2??Critical (08/17/24) ? Vital Signs?? Temperature: 98.6 DegF (08/24/24 14:53:00) Temperature Route: Oral (08/24/24 14:53:00) Pulse Rate: 90 bpm (08/24/24 14:53:00) Respiratory Rate: 20 br/min (08/24/24 14:53:00) Systolic Blood Pressure: 122 mm Hg (08/24/24 14:53:00) Diastolic Blood Pressure: 61 mm Hg (08/24/24 14:53:00) Blood pressure sites: Arm, right (08/24/24 14:53:00) Mean Arterial Pressure: 81 mm Hg (08/24/24 14:53:00) Pulse Pressure: 61 mm Hg (08/24/24 14:53:00) Oxygen Saturation: 97 % (08/24/24 14:53:00) Mode of Delivery (Oxygen): Room air (08/24/24 14:53:00) Early Warning Score: 0 (08/24/24 14:53:54) ? Intake/Output? 08/17 12:33 08/24 07:00 08/23 07:00 08/22 07:00 08/21 07:00 ?? 08/24 15:14 08/24 15:14 08/24 06:59 08/23 06:59 08/22 06:59 Intake ? 6180 ?240 ?760 ?485 ?125 Output ? 9360 ?125 ?545 ?915 ?875 Net Total ?-3180 ?115 ?215 ? -430 ? -750 ? Urine Count ?1 ?0 ?0 ?1 ?0 ? Physical Exam General?NAD, AAO HEENT?PERRLA, oropharynx clear, moist mucus membranes Pulm?no labored breathing - chest tube in place CV?RRR, +S1/S2, no murmurs/rubs GI?Soft, nontender, nondistended, no organomegaly, bowel sounds are present Neuro?Moves all extremities MS?no obvious deformity Psych?Mood appropriate to situation?? _ Inpatient Medications Medications (15) Active SCHEDULED: (6) Atorvastatin 80 mg Tablet (atorvastatin 80 mg oral tablet) ??80 mg, By Mouth, Daily Heparin 5000 units/mL Inj (1 mL) (Heparin Inj) ??5,000 units 1 mL, Subcutaneous Injection, 3 times a day Lansoprazole 30 mg OD Tablet (Lansoprazole OD Tablet) ??30 mg, By Mouth, Daily Lidocaine 5% Topical Patch (Lidocaine 5% Patch) ??2 each, Topically, Daily Phos-NaK Oral Powder (Potassium/Sodium Phosphates Oral Powder) ??1 pack/packet, By Mouth, 2 times aday Remove Patch (Remove Lidocaine Patch) ??1 each, Topically, Daily at bedtime CONTINUOUS: (0) PRN: (9) Acetaminophen 325 mg Tablet (Acetaminophen Tablet) ??650 mg, By Mouth, Every 6 hours Chloraseptic Lozenge ??1 lozenge, By Mouth, Every 3 hours Chloraseptic Lozenge ??1 lozenge, By Mouth, Every 3 hours Chloraseptic Throat Terral (Chloraseptic Terral) ??1 sprays, By Mouth, Every 4 hours Lidocaine 5% Topical Patch (Lidocaine 5% Patch) ??1 each, Topically, Daily Ondansetron 2mg/mL Inj (2mL Vial) (Zofran Inj) ??4 mg, IV Push, Every 6 hours Polyethylene Glycol 17 Gm Powder (MiraLax Powder) ??17 Gm 1 pack/packet, By Mouth, Daily Remove Patch (Remove Lidocaine Patch) ??1 each, Topically, Daily at bedtime Senna Tablet (Senna 8.6 mg oral tablet) ??8.6 mg 1 tablet, By Mouth, Daily ? Results Abnormal Labs ?? BLOOD COUNT & DIFF Abs. NRBC?0.0 k/mm3 ()?08/24/2024 07:28 Hct?33.9 % (Low)?08/24/2024 07:28 Hgb?11.0 Gm/dL (Low)?08/24/2024 07:28 MCHC?32.4 Gm/dL (Low)?08/24/2024 07:28 Nucleated RBC (Automated)?0.0 #/100 WBC'S ()?08/24/2024 07:28 RBC?3.74 m/mm3 (Low)?08/24/2024 07:28 RDW-SD?45.0 femtoliters ()?08/24/2024:28 ?? CHEM GENERAL BUN?27 mg/dL (High)?08/24/2024 07:28 Calcium?8.4 mg/dL (Low)?08/24/2024 07:28 Creatinine-Blood?1.53 mg/dL (High)?08/24/2024 07:28 Estimated GFR Creatinine?44 ML/MIN/1.73 M2 ()?08/24/2024 07:28 Glucose Level?100 mg/dL (High)?08/24/2024 07:28 ?? Note: Critical results are displayed in red. ? Assessment/Plan 89-year-old gentleman k/c of prostate cancer s/p prostatectomy??in remission,??carotid artery stenosis s/p CEA,CKD, HTN, HLD, GERD and pleural effusion followed by [facility] thoracic surgery thought to possibly be malignant.? Initial presentation with concern of cardiogenic shock with heart rate??30,??blood pressure and syncope??patient required pacing by??EMS team.?? X-ray??showed??right lung collapse??with large effusion ??required??emergent??pigtail tube placement??with improvement after draining??the effusion. ??Patient was seen by??electrophysiology team??regarding bradycardia and shock??and thought to have??vagalstimulation from large effusion the patient has been stable??since effusion drained.?? Imaging showed pneumothorax ex vacuo??with??pigtail catheter already in place??on the right??and surgical team was involved, no further??intervention needed.?? Patient really has been stable??normal oxygen saturation on room air.? Acute hypoxic respiratory failure (J96.01):?? Exudative pleural effusion (J90):?? 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 Seen by thx surgery (On evaluation the??right sided pigtail was??kinked and therefore not allowing??drainage of the pneumothorax) -Patient is stable at this point, chest tube continued to have significant drainage. -Discussed case with thoracic surgery team at [facility]??and plan to transfer patient to??[facility] for possible procedure on Friday. ??His??thoracic surgeon is Dr. Alessandro Reaves ?? Vasovagal syncope (R55):??Thought to be related to??large pleural effusion.?? 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 Moderate malnutrition (E44.0):??Followed by nutrition CKD ??(N18.32):??Renal function stable. ? * Angeline Benítez RN: PERFORM, SIGN, VERIFY Event Display: Progress Note Hospital Authored Date: Patient: NATO SCHROEDER Age: 89 years Sex: Male : 1935 Associated Diagnoses: None Author: Angeline Benítez RN Findings Problem Related to Alteration in Respiratory Function (new) : Alteration in Respiratory Function/new 08/23/2024 11:00 EST Alteration in Resp Status Related to Other: pleural effusion/ tachypnea/ chest tube Goals & Outcomes, Respiratory Pt will maintain/resume baseline physical assessment, Pt will notdevelop complications r/t mechanical ventilation, Pt will maintain adequate nutritional intake, Pt will maintain/resume normal fluid/electrolyte balance, Pt will not develop complications r/t immobility, Pt will demonstrate proper technique w/self care procedures Interventions, Respiratory Assess/monitor tolerance to IV infusions; verify rate/dose, Assess for and report S&S of respiratory distress, Position for comfort & optimal oxygenation BH Goals/Interventions, Respiratory Yes Respiratory, Problem Start 08/17/2024 17:42 Reviewed Plan with, Respiratory Patient Patient Progression, Respiratory Patient progressing according to plan . Evaluation Patient A+Ox4. on tele NSR 80s bpm. R chest tube patent, attached to suction as ordered. SOB with activity noted. LS clear with diminished sounds RLL. Patient on continuous oxygen monitoring. Patientparticipated with physical therapy this morning. maintain safety and comfort. call goodson within reach. bed alarm on. See CIS for further assessment. . Discharge Information Rehabilitation Discharge : Rehab Discharge Index 08/21/2024 8:29 EST Comments on treatment indicated 89 y/o M c PMH of thoracic malignant effusions admitted for AMS, hypotension and bradycardia requiring transcutaneous pacing. WBAT, fall risk. PT f/u for ther ex, bed mob, transfers, gait,and balance. Rec rehab Distance pt will ambulate 20ft Full chart review completed Yes Hospital course see comment Other findings Pt is a mod complexity eval d/t current medical status and PMH Plan of care PT Gait training, Transfer training, Therapeutic exercise, Functional Activities, Balance training, Neuromuscular education Note * Event Display: Provider Clarification Note Please click on pdf link to open report * Event Display: Provider Clarification Note Please click on pdf link to open report * Event Display: Provider Clarification Note Please click on pdf link to open report * Vicky Mistry RN: PERFORM Event Display: Discharge/Transfer Note Hospital Authored Date: [id number] Nursing Discharge Note Entered On: 08/24/2024 19:36 EST Performed On: 08/24/2024 19:35 EST by Vicky Mistry RN Nursing Discharge Note 2 Discharge Time : 08/24/2024 19:38 EST Name of Receiving Short Term Gen Hosp : [facility] Vicky Mistry RN - 08/24/2024 19:38 EST Discharge Level of Care at Discharge : Hospice Medical Facility Patient Left Unit Via : Ambulance Patient Accompanied Off Unit with : Ambulance/Chair Van Personnel Handover Given to Transport Personnel : Yes DC Instructions Provided & Signed by Pt : No Patient Understands D/C Instructions : Yes Verbalized Understanding of D/C Plan By : Patient Patient Instructions Discharge Signed : No Did Pt have Specialty Bed or Wound Vac : No Vicky Mistry RN - 08/24/2024 19:35 EST * Lukasz MUSTAFA, mayelin: PERFORM, MODIFY Event Display: Discharge/Transfer Note Hospital Authored Date: [id number] Patient: ??NATO SCHROEDER ? Age:??89 Years?Sex:??Male?:??1935?? Patient Information Discharge Location: [facility]4 Primary Care Physician: Not on Staff, PCP Admit Date/Time: 08/17/2024 12:33 Discharge Disposition Discharge Disposition: ?? 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 Medications Discontinued Aspirin (aspirin 325 mg oral capsule)?1?capsule?325?Milligram?By Mouth?Daily Doses Changed None Allergies Allergies ?(Active and Proposed Allergies Only) NKA? (Severity: Unknown severity, Onset: Unknown) ? Hospital Course 89-year-old gentleman k/c of prostate cancer s/p prostatectomy??in remission,??carotid artery stenosis s/p CEA,CKD, HTN, HLD, GERD and pleural effusion followed by [facility] thoracic surgery thought to possibly be malignant.? Initial presentation with concern of cardiogenic shock with heart rate??30,??blood pressure and syncope??patient required pacing by??EMS team.?? X-ray??showed??right lung collapse??with large effusion ??required??emergent??pigtail tube placement??with improvement after draining??the effusion. ??Patient was seen by??electrophysiology team??regarding bradycardia and shock??and thought to have??vagalstimulation from large effusion the patient has been stable??since effusion drained.?? Imaging showed pneumothorax ex vacuo??with??pigtail catheter already in place??on the right??and surgical team was involved, no further??intervention needed.?? Patient really has been stable??normal oxygen saturation on room air.? Acute hypoxic respiratory failure (J96.01):?? Exudative pleural effusion (J90):?? 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 Seen by thx surgery (On evaluation the??right sided pigtail was??kinked and therefore not allowing??drainage of the pneumothorax) -Patient is stable at this point, chest tube continued to have significant drainage. -Discussed case with thoracic surgery team at [facility]??and plan to transfer patient to??[facility] for possible procedure on Friday. ??His??thoracic surgeon is Dr. Alessandro Reaves ?? Vasovagal syncope (R55):??Thought to be related to??large pleural effusion.?? 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 Moderate malnutrition (E44.0):??Followed by nutrition CKD ??(N18.32):??Renal function stable. ? Objective Vital Signs?? Temperature: 97.5 DegF (08/23/24 11:47:00) Temperature Route: Oral (08/23/24 11:47:00) Pulse Rate:??91 bpm??High (08/23/24 11:47:00) Respiratory Rate: 20 br/min (08/23/24 11:47:00) Systolic Blood Pressure: 113 mm Hg (08/23/24 11:47:00) Diastolic Blood Pressure: 63 mm Hg (08/23/24 11:47:00) Blood pressure sites: Arm, right (08/23/24 11:47:00) Mean Arterial Pressure: 80 mm Hg (08/23/24 11:47:00) Pulse Pressure: 50 mm Hg (08/23/24 11:47:00) Oxygen Saturation: 97 % (08/23/24 11:47:00) Mode of Delivery (Oxygen): Room air (08/23/24 11:47:00) Early Warning Score: 2 (08/23/24 11:48:38) ? . Physical Exam General?NAD, AAO HEENT?PERRLA, oropharynx clear, moist mucus membranes Pulm?chest tube in place CV?RRR, +S1/S2, no murmurs/rubs GI?Soft, nontender, nondistended, no organomegaly, bowel sounds are present Neuro?Moves all extremities MS?no obvious deformity Psych?Mood appropriate to situation?? Pending Results Add On Lab Order ordered on 08/17/2024 Add On Lab Order ordered on 08/18/2024 Add On Lab Order ordered on 08/19/2024 Basic Metabolic Panel ordered on 08/24/2024 CBC ordered on 08/24/2024 Cytology Reports General ordered on 08/20/2024 Fungal Culture and Stain, Non Blood ordered on 08/17/2024 Magnesium Level ordered on 08/19/2024 Magnesium Level ordered on 08/24/2024 Phosphorus Level ordered on 08/24/2024 Home Health Face to Face ^HomeHealthFTF Results Discharge Labs BACTERIOLOGY Beta Strep Gp A Specimen Source THROAT SWAB ()?? 08/21/2024 02:57 Gram Stain Isolate 1 Comment ()?? 08/17/2024 14:30 Gram Stain Isolate 2 No organisms seen ()?? 08/17/2024 14:30 Anaerobic Cult Isolate 1 Comment ()?? 08/17/2024 14:30 Gram Stain Result Final report ()?? 08/17/2024 14:30 Beta Strep Gp A Culture NEGATIVE ()?? 08/21/2024 02:57 Anaerobic Culture Results Final report ()?? 08/17/2024 14:30 Body Fluid Culture Results Final report ()?? 08/17/2024 14:30 Body Fluid Specimen Source Pleural fluid, right ()?? 08/17/2024 14:30 Body Fluid Culture Isolate 1 Comment ()?? 08/17/2024 14:30 ?? BLOOD BANK Blood Type A Negative ()?? 08/17/2024 10:10 Antibody Screen Negative ()?? 08/17/2024 10:10 ?? BLOOD COUNT & DIFF WBC 9.9 k/mm3 ()?? 08/22/2024 06:59 RBC 3.63 m/mm3 (Low)?? 08/22/2024 06:59 Hgb 10.6 Gm/dL (Low)?? 08/22/2024 06:59 Hct 33.6 % (Low)?? 08/22/2024 06:59 MCV 92.6 femtoliters ()?? 08/22/2024 06:59 MCH 29.2 pg ()?? 08/22/2024 06:59 MCHC 31.5 Gm/dL (Low)?? 08/22/2024 06:59 Platelet Count 200 k/mm3 ()?? 08/22/2024 06:59 RDW-SD 45.1 femtoliters ()?? 08/22/2024 06:59 MPV 11.4 femtoliters ()?? 08/22/2024 06:59 Nucleated RBC (Automated) 0.0 #/100 WBC'S ()?? 08/22/2024 06:59 Abs. NRBC 0.0 k/mm3 ()?? 08/22/2024 06:59 Abs. Neut 7.5 k/mm3 (High)?? 08/22/2024 06:59 Abs. Lymph 1.0 k/mm3 ()?? 08/22/2024 06:59 Abs. Taylor 1.3 k/mm3 ()?? 08/22/2024 06:59 Abs. Eo 0.1 k/mm3 ()?? 08/22/2024 06:59 Abs. Baso 0.0 k/mm3 ()?? 08/22/2024 06:59 Neut % 75.9 % ()?? 08/22/2024 06:59 Lymph % 9.6 % (Low)?? 08/22/2024 06:59 Taylor % 13.2 % (High)?? 08/22/2024 06:59 Eos % 0.5 % ()?? 08/22/2024 06:59 Baso % 0.2 % ()?? 08/22/2024 06:59 Hemoglobin (POC) POC Cartridge 10.5 Gm/dL (Low)?? 08/17/2024 10:21 Hematocrit (POC) POC Cartridge 31 % (Low)?? 08/17/2024 10:21 Imm Gran 0.6 % ()?? 08/22/2024 06:59 Abs. Imm Gran 0.1 k/mm3 ()?? 08/22/2024 06:59 ?? BLOOD GAS pH Venous (POC) POC Cartridge 7.31 (Low)?? 08/17/2024 10:21 pCO2 Venous (POC) POC Cartridge 31.8 mm Hg (Low)?? 08/17/2024 10:21 pO2 Venous (POC) POC Cartridge 25 mm Hg (Low)?? 08/17/2024 10:21 Est Bicarbonate (POC) POC Cartridge 16.2 mmol/L (Low)?? 08/17/2024 10:21 % O2 Sat Venous (POC) POC Cartridge 41 ()?? 08/17/2024 10:21 Base Excess (POC) POC Cartridge NEGATIVE 10 ()?? 08/17/2024 10:21 Specimen Type - Blood Gas VENOUS ()?? 08/17/2024 10:21 ? CARDIAC CK, Total 70 units/L ()?? 08/17/2024 10:18 High Sensitivity Troponin (HSTnT) 238 ng/L (Critical)?? 08/17/2024 12:06 ?? CHEM GENERAL Sodium 140 mmol/L ()?? 08/22/2024 06:59 Potassium 4.2 mmol/L ()?? 08/22/2024 06:59 Chloride 105 mmol/L ()?? 08/22/2024 06:59 Bicarbonate Level 23 mmol/L ()?? 08/22/2024 06:59 Anion Gap 12 ()?? 08/22/2024 06:59 Sodium (POC) POC Cartridge 142 mmol/L ()?? 08/17/2024 10:21 Potassium (POC) POC Cartridge 3.9 mmol/L ()?? 08/17/2024 10:21 Glucose Level 112 mg/dL (High)?? 08/22/2024 06:59 Glucose (POC) POC Cartridge 164 (High)?? 08/17/2024 10:21 Glucose, POC 173 mg/dL (High)?? 08/17/2024 09:56 BUN 26 mg/dL (High)?? 08/22/2024 06:59 Creatinine-Blood 1.51 mg/dL (High)?? 08/22/2024 06:59 Estimated GFR Creatinine 44 ML/MIN/1.73 M2 ()?? 08/22/2024 06:59 Calcium 8.1 mg/dL (Low)?? 08/22/2024 06:59 Calcium, Ionized pH Corrected 1.02 mmol/L (Low)?? 08/17/2024 10:18 Ionized Calcium (POC) POC Cartridge 1.00 mmol/L (Critical)?? 08/17/2024 10:21 Phosphorus 1.9 mg/dL (Low)?? 08/22/2024 06:59 Magnesium 1.8 mg/dL ()?? 08/22/2024 06:59 Protein, Total 5.7 Gm/dL (Low)?? 08/22/2024 06:59 Albumin 2.7 Gm/dL (Low)?? 08/22/2024 06:59 AG Ratio 1.0 ()?? 08/21/2024 03:21 LDH 249 units/L ()?? 08/17/2024 12:06 Alkaline Phosphatase 74 units/L ()?? 08/22/2024 06:59 AST (SGOT) 15 units/L ()?? 08/22/2024 06:59 ALT (SGPT) 15 units/L ()?? 08/22/2024 06:59 Bilirubin, Total 0.5 mg/dL ()?? 08/22/2024 06:59 Bilirubin, Direct 0.2 mg/dL ()?? 08/22/2024 06:59 Bilirubin, Indirect 0.3 mg/dL ()?? 08/22/2024 06:59 C-Reactive Protein 22.6 mg/dL (High)?? 08/22/2024 06:59 ? COAG D-Dimer 5.64 mg/L FEU (High)?? 08/17/2024 10:18 ? ENDOCRINE/TUMOR MARKER TSH 0.59 uIU/mL ()?? 08/22/2024 06:59 Cortisol Level 27.0 ??g/dL ()?? 08/17/2024 12:06 ?? FLUID STUDIES Color, Fluid RED ()?? 08/17/2024 14:30 Appearance, Fluid BLOODY ()?? 08/17/2024 14:30 WBC, Fluid 655 per Cubic Millimeter ()?? 08/17/2024 14:30 RBC, Fluid >[id number] per Cubic Millimeter ()?? 08/17/2024 14:30 Band, Fluid 4 % ()?? 08/17/2024 11:50 Seg, Fluid 54 % ()?? 08/17/2024 14:30 Lymph, Fluid 31 % ()?? 08/17/2024 14:30 Taylor, Fluid 14 % ()?? 08/17/2024 14:30 Eos, Fluid 1 % ()?? 08/17/2024 14:30 Other, Fluid 2 % ()?? 08/17/2024 11:50 Crystal Id NONE SEEN ()?? 08/17/2024 14:30 Fluid pH 7.23 ()?? 08/17/2024 14:30 T. Protein, Fluid 4.0 Gm/dL ()?? 08/17/2024 14:30 Glucose, Fluid 54 mg/dL ()?? 08/17/2024 14:30 Chylomicrons, fluid ABSENT ()?? 08/17/2024 14:30 LDH, Fluid 407 units/L ()?? 08/17/2024 14:30 Albumin, Fluid 2.9 Gm/dL ()?? 08/17/2024 14:30 Amylase, Fluid 80 units/L ()?? 08/17/2024 14:30 Body Fluid Smear Interpretation Reviewed by pathologist. ()?? 08/17/2024 11:50 ? HEME OTHER Sed Rate 53 mm/hr (High)?? 08/22/2024 06:59 ? LIPID STUDIES Cholesterol 48 mg/dL ()?? 08/17/2024 14:30 Triglycerides 34 mg/dL ()?? 08/17/2024 14:30 ?? MISC. CHEMISTRY Procalcitonin 0.29 ng/mL ()?? 08/22/2024 06:59 ? URINE OTHER Est Creatinine Clearance 30.82 mL/min ()?? 08/22/2024 08:26 ? VIROLOGY COVID-19 by RT-PCR NEGATIVE ()?? 08/17/2024 11:30 ? Microbiology ?? Throat Culture Grp A Strep?? Completed?? Source: Throat Swab Body Site: ?? Collected Dt/Tm: 08/21/2024 02:50 Last Updated Dt/Tm: 08/23/2024 12:08 ?? Fungal Culture and Stain, Non Blood?? Collected?? Source: Pleural Fluid Right Body Site: Pleural Cavity Collected Dt/Tm: 08/17/2024 18:57 Last Updated Dt/Tm: 08/17/2024 18:59 ?? Body Fluid Cult Aer/Anaer w/Gram?? Completed?? Source: Pleural Fluid Right Body Site: ?? Collected Dt/Tm: 08/17/2024 18:30 Last Updated Dt/Tm: 08/21/2024 11:05 ?? Gram Smear Result?? Completed?? Source: Pleural Fluid Right Body Site: ?? Collected Dt/Tm: 08/17/2024 14:30 Last Updated Dt/Tm: 08/18/2024 18:07 ?? Gram Stain/Body Fluid Culture Reflex?? Completed?? Source: Pleural Fluid Right Body Site: ?? Collected Dt/Tm: 08/17/2024 14:30 Last Updated Dt/Tm: 08/19/2024 11:07 ?? Anaerobic Culture Result?? Completed?? Source: Pleural Fluid Right Body Site: ?? Collected Dt/Tm: 08/17/2024 14:30 Last Updated Dt/Tm: 08/21/2024 11:06 ?? Gram Smear Result?? Completed?? Source: Pleural Fluid Right Body Site: ?? Collected Dt/Tm: 08/17/2024 11:50 Last Updated Dt/Tm: 08/18/2024 01:05 ?? Gram Stain/Body Fluid Culture Reflex?? Completed?? Source: Pleural Fluid Right Body Site: ?? Collected Dt/Tm: 08/17/2024 11:50 Last Updated Dt/Tm: 08/19/2024 11:07 ?? Anaerobic Culture Result?? Completed?? Source: Pleural Fluid Right Body Site: ?? Collected Dt/Tm: 08/17/2024 11:50 Last Updated Dt/Tm: 08/21/2024 11:06 ?? Body Fluid Cult Aer/Anaer w/Gram?? Completed?? Source: Pleural Fluid Right Body Site: ?? Collected Dt/Tm: 08/17/2024 11:40 Last Updated Dt/Tm: 08/21/2024 11:05 ?? COVID-19 (Novel Coronavirus), Rapid PCR?? Completed?? Source: Nasal Body Site: Nose Collected Dt/Tm: 08/17/2024 11:32 Last Updated Dt/Tm: 08/17/2024 13:09 ? >35??minutes spent on discharge * Jeffrey DUGAN, Kristine: PERFORM Event Display: Patient Education/Instruction Authored Date: [id number] Inpatient Adult Discharge Instructions. [address] [address] Name: NATO SCHROEDER : 1935?? Visit: 08/17/2024 12:33?? Current Date: 08/24/2024 15:53 ?? Account: [id number]?? Inpatient Adult Discharge Instructions We would like to thank you for allowing us to assist you with your healthcare needs. The following includes patient education materials and information regarding your injury/illness. Our entire staffstrives to provide an excellent experience for our patients and their families. PLEASE ENSURE YOU FOLLOW-UP PER THE INSTRUCTIONS BELOW! ?? YOUR OPINION IS IMPORTANT TO US! Please complete the survey you may receive by mail or email. Your feedback will be used to make improvements to the healthcare experiences of our patients and their families. Surveys are administered by [employer] ?? If further treatment with your primary care physician or another doctor is recommended, it is important for you to keep the appointment. Call your primary care physician or return to the Emergency Department immediately if your condition worsens, fails to improve, or new symptoms develop. If you need to find a doctor, you can call [facility] [employer] works Link for a referral at [phone] or toll free at [phone]) or log in to [email or web address].. ?? [facility], in keeping with [facility] guidance, no longer requires face masks for staff, patientsor visitors in most situations. Similiar to time spent indoors at other locations, there is the chance that you were exposed to repiratory viruses during your time with us (such as flu or COVID-19). If you develop symptoms concerning for a viral respiratory infection, please seek testing (and treatment if indicated) from your medical provider or home test kit. ?? You can view and manage your care through the patient portal or by using a health care tejas of your choosing. [email or web address] is a website that allows you to securely view your medical information including your hospital discharge summary, office visit summaries, medications and follow-up visits. You can also request appointments, renew medications, and request access to your medical information using a health care tejas of your choosing, or just ask a question. You can enroll at [email or web address] or register during your next office visit. You have been discharged from [facility], Patient Care Unit: W4??. If you have any questions regarding these instructions, including results of studies pending, afteryou leave, please call us and we will be happy to assist you 14/04. [facility] Your Care Team Attending Physician Kaylee Lal MD?? Consulting Providers Kaylee Lal MD?? Discharging Providers Kaylee Lal MD Reason for Your Visit Transfer to medicine service?? Your Diagnosis Vasovagal syncope Atrioventricular block, second degree Acute hypoxic respiratory failure Exudative pleural effusion Stage 3b chronic kidney disease Moderate malnutrition Tests Performed Below is a partial list of the tests performed during your hospitalization. You may have had other tests and procedures not included in this list. Please discuss all test results with your provider. [id number] Albumin Fluid Albumin Level AMYLASE FLUID Anaerobic Culture Result BASE EXCESS POC CARTRIDGE Basic Metabolic Panel Body Fluid Cult Aer/Anaer w/Gram Body Fluid Culture Reflex BODY FLUID SMEAR REVIEW BUN CALCIUM IONIZED POC CART CBC CBC w/ Differential Cell Count and Differential Fluid Chylous Effusion Comprehensive Metabolic Panel CORTISOL COVID-19 (Novel Coronavirus), Rapid PCR CPK Total Only Creatinine CRP Culture Throat Grp A Strep D Dimer Electrolytes ESR Glucose Fluid Glucose Level GLUCOSE POC GLUCOSE POC CARTRIDGE Gram Stain Result HEMATOCRIT POC CARTRIDGE HEMOGLOBIN POC CARTRIDGE High Sensitivity Troponin T Ionized Calcium LDH LDH Fluid LFT's Magnesium Level Mg Level pH Fluid Phosphorus Level POTASSIUM POC CARTRIDGE Procalcitonin Level Protein Fluid SODIUM POC CARTRIDGE TOTAL PROTEIN TSH TSH WITH REFLEX TO FT4 Type and Screen VBG POC CARTRIDGE Chest CT W/O Contrast CT Chest W/ IV Contrast CXR Portable CXR W/ Frontal and Lat XR Chest Portable Add On Lab Order?? Albumin Fluid?? Albumin Level?? Amylase Fluid?? Anaerobic Culture Result?? BUN?? Base Excess (Lab) POC Cartridge (BASE EXCESS POC CARTRIDGE)?? Basic Metabolic Panel?? Body Fluid Cult Aer/Anaer w/Gram?? Body Fluid Smear Review?? C Reactive Protein (CRP)?? CBC?? CBC w/ Differential?? COVID-19 (Novel Coronavirus), Rapid PCR?? CPK Total Only?? CT Chest W/ Contrast (CT Chest W/ IV Contrast)?? CT Chest W/O Contrast (Chest CT W/O Contrast)?? Cell Count and Differential Fluid?? Chylous Effusion?? Comprehensive Metabolic Panel?? Cortisol Level (CORTISOL)?? Creatinine?? Cytology Reports General ()?? D Dimer?? Electrolytes?? Glucose (Lab) POC Cartridge (GLUCOSE POC CARTRIDGE)?? Glucose Fluid?? Glucose Level?? Glucose POC?? Gram Smear Result (Gram Stain Result)?? Gram Stain/Body Fluid Culture Reflex (Body Fluid Culture Reflex)?? Hematocrit (Lab) POC Cartridge (HEMATOCRIT POC CARTRIDGE)?? Hemoglobin (Lab) POC Cartridge (HEMOGLOBIN POC CARTRIDGE)?? Hepatic Function Panel (LFT's)?? High??Sensitivity??Troponin T (High Sensitivity Troponin T)?? Ionized Calcium?? Ionized Calcium(POC) POC Cartridge (CALCIUM IONIZED POC CART)?? LDH?? LDH Fluid?? Magnesium Level (Mg Level)?? Phosphorus Level?? Potassium (Lab) POC Cartridge (POTASSIUM POC CARTRIDGE)?? Procalcitonin Level?? Protein Fluid?? Sedimentation Rate (ESR)?? Sodium (Lab) POC Cartridge (SODIUM POC CARTRIDGE)?? TSH?? TSH with T4 Reflex (Adults Only) (TSH WITH REFLEX TO FT4)?? Throat Culture Grp A Strep (Culture Throat Grp A Strep)?? Total Protein?? Type and Screen?? VBG (Lab) POC Cartridge (VBG POC CARTRIDGE)?? Chest 2 Views Frontal and Lat (CXR W/ Frontal and Lat)?? Chest Portable (CXR Portable)?? pH Fluid?? Primary Care Provider Not on Staff, PCP?? Advance Directive Health Care Proxy on File No Patient refuses to discuss Discharge Vitals Temperature: 98.6 DegF Height: 167 cm Pulse Rate: 90 bpm Weight: 80.7 kg Respiratory Rate: 20 br/min Body Mass Index:??34.42 kg/m2??Critical Systolic Blood Pressure: 122 mm Hg Body surface area: 2.11 Diastolic Blood Pressure: 61 mm Hg ?? Oxygen Saturation: 97 % ?? Studies Pending All studies ordered during this hospital stay have been completed unless listed below. Please discuss all pending results with your provider listed above in these instructions. ?? Add On Lab Order?? What to do next Instructions From Your Doctor ?? Orders? 08/24/24 15:51:00 EST?? Discharge Medications ASSELIN, NATO :1935 Visit Date:08/17/2024 Medications: Please continue your medications until treatment is completed or stopped by your provider. Medications not listed below should be discontinued. Discuss any questions related to medications with your provider. What How Much When Instructions Next Dose New Potassium Phosphate-Sodium Phosphate (Potassium/ Sodium Phosphates Oral Powder) 1 pack/packet Oral Twice a day Friday evening Unchanged Atorvastatin (atorvastatin 80 mg oral tablet) 1 tab(s) Oral Daily Friday Unchanged Esomeprazole (esomeprazole 40 mg oral enteric coated capsule) 1 capsule Oral Daily Friday Unchanged Ezetimibe (ezetimibe 10 mg oral tablet) 1 tab(s) Oral Daily Friday ?? What How Much When Comments Stop Taking Aspirin (aspirin 325 mg oral capsule) 1 capsule Oral Daily Stop Taking Hydrochlorothiazide-Lisinopril (hydrochlorothiazide-lisinopril 25 mg-20 mg oral tablet) 1 tab(s) Oral Every 12 hours Stop Taking Metoprolol (metoprolol succinate 25 mg oral capsule, extended release) 1 capsule Oral Daily Prescription Given During Visit No new medications prescribed at time of discharge.?? Laboratory Results Below is a partial list of the most recent Laboratory test results done prior to this discharge. You may have had other tests and procedures not included in this list. Please discuss all test resultswith your provider. Est Creatinine Clearance - 30.42 mL/min (08/24/2024) [id number] (08/20/2024) ? ?Cytology Reports General - Patient Name: NATO SCHROEDER
Patient : 1935 (Age: 89)
Lab
Collection Date: 08/20/2024
Accession Date: 08/20/2024
Sign Out Date: 08/24/2024

Tissue Source:
1: PLEURAL FLUID, RIGHT:

Final Diagnosis:

PLEURAL FLUID, RIGHT:
NEGATIVE FOR MALIGNANT CELLS.
Rare mixed inflammatory cells present.
Material insufficient for cell block preparation.

The specimen processing and screening performed at [facility], [address] [place] [address] (CLIA#[id number]). Its performance characteristicsdetermined by [email or web address].

Clinical History:
Date of Last Menstrual Period: not available
Menstrual History: not available
Contraceptive History: not available
Ancillary Testing: not available<br/&g t;Clinical History (other): Right chest tube site.

<br/ >Gross Description:
Received 5cc of red, opaque fluid
1 ThinPrep cellular enhancement technique
Cell block Quantity not sufficient. -08/20/24

Primary Pathologist:
Aicha Benjamin M.D.
Phone #: [phone],On-Call Pathologist: [id number] Albumin Fluid (08/17/2024) ???Albumin, Fluid - 2.9 Gm/dL Albumin Level (08/17/2024) ???Albumin - 3.4 Gm/dL AMYLASE FLUID (08/17/2024) ???Amylase, Fluid - 80 units/L Anaerobic Culture Result (08/17/2024) ???Anaerobic Cult Isolate 1 - Comment BASE EXCESS POC CARTRIDGE (08/17/2024) ???Base Excess (POC) POC Cartridge - NEGATIVE 10 Basic Metabolic Panel (08/24/2024) ???Sodium - 141 mmol/L???Potassium - 4.3 mmol/L???Chloride - 106 mmol/L???Bicarbonate Level - 24 mmol/L???Anion Gap - 11???Glucose Level - 100 mg/dL???BUN - 27 mg/dL???Creatinine-Blood - 1.53 mg/dL???Estimated GFR Creatinine - 44 ML/MIN/1.73 M2???Calcium - 8.4 mg/dL Body Fluid Cult Aer/Anaer w/Gram (08/17/2024) ???Gram Stain Result - Final report???Anaerobic Culture Results - Final report???Body Fluid CultureResults - Final report???Body Fluid Specimen Source - Pleural fluid, right Body Fluid Culture Reflex (08/17/2024) ???Body Fluid Culture Isolate 1 - Comment BODY FLUID SMEAR REVIEW (08/17/2024) ???Body Fluid Smear Interpretation - Reviewed by pathologist. BUN (08/17/2024) ???BUN - 41 mg/dL CALCIUM IONIZED POC CART (08/17/2024) ???Ionized Calcium (POC) POC Cartridge - 1.00 mmol/L CBC (08/24/2024) ???WBC - 7.8 k/mm3???RBC - 3.74 m/mm3???Hgb - 11.0 Gm/dL???Hct - 33.9 %???MCV - 90.6 femtoliters???MCH - 29.4 pg???MCHC - 32.4 Gm/dL???Platelet Count - 241 k/mm3???RDW-SD - 45.0 femtoliters???MPV - 10.8 femtoliters???Nucleated RBC (Automated) - 0.0 #/100 WBC'S???Abs. NRBC - 0.0 k/mm3 CBC w/ Differential (08/22/2024) ???WBC - 9.9 k/mm3???RBC - 3.63 m/mm3???Hgb - 10.6 Gm/dL???Hct - 33.6 %???MCV - 92.6 femtoliters???MCH - 29.2 pg???MCHC - 31.5 Gm/dL???Platelet Count - 200 k/mm3???RDW-SD - 45.1 femtoliters???MPV - 11.4 femtoliters???Nucleated RBC (Automated) - 0.0 #/100 WBC'S???Abs. NRBC - 0.0 k/mm3???Abs. Neut - 7.5 k/mm3???Abs. Lymph - 1.0 k/mm3???Abs. Taylor - 1.3 k/mm3???Abs. Eo - 0.1 k/mm3???Abs. Baso - 0.0 k/mm3???Neut % - 75.9 %???Lymph % - 9.6 %???Taylor % - 13.2 %???Eos % - 0.5 %???Baso % - 0.2 %???Imm Gran - 0.6 %???Abs. Imm Gran - 0.1 k/mm3 Cell Count and Differential Fluid (08/17/2024) ???Color, Fluid - RED???Appearance, Fluid - BLOODY???WBC, Fluid - 624 per Cubic Millimeter???RBC, Fluid - [id number] per Cubic Millimeter???Band, Fluid - 4 %???Seg, Fluid - 62 %???Lymph, Fluid - 24 %???Taylor, Fluid - 7 %???Eos, Fluid - 1 %???Other, Fluid - 2 % Chylous Effusion (08/17/2024) ???Cholesterol - 48 mg/dL???Triglycerides - 34 mg/dL???Color, Fluid - RED???Appearance, Fluid - BLOODY? ?WBC, Fluid - 655 per Cubic Millimeter? ?RBC, Fluid - >214686 per Cubic Millimeter? ?Seg, Fluid - 54 %???Lymph, Fluid - 31 %???Taylor, Fluid - 14 %???Eos, Fluid - 1 %???Crystal Id - NONE SEEN???Chylomicrons, fluid - ABSENT Comprehensive Metabolic Panel (08/21/2024) ???Sodium - 139 mmol/L???Potassium - 4.0 mmol/L???Chloride - 106 mmol/L???Bicarbonate Level - 22 mmol/L???Anion Gap - 11???Glucose Level - 121 mg/dL???BUN - 31 mg/dL???Creatinine-Blood - 1.54 mg/dL???Estimated GFR Creatinine - 43 ML/MIN/1.73 M2???Calcium - 8.1 mg/dL???Protein, Total - 5.5 Gm/dL???Albumin - 2.8 Gm/dL???AG Ratio - 1.0???Alkaline Phosphatase - 76 units/L???AST (SGOT) - 19 units/L???ALT (SGPT) - 15 units/L???Bilirubin, Total - 0.4 mg/dL CORTISOL (08/17/2024) ???Cortisol Level - 27.0 ??g/dL COVID-19 (Novel Coronavirus), Rapid PCR (08/17/2024) ???COVID-19 by RT-PCR - NEGATIVE CPK Total Only (08/17/2024) ???CK, Total - 70 units/L Creatinine (08/17/2024) ???Creatinine-Blood - 2.14 mg/dL???Estimated GFR Creatinine - 29 ML/MIN/1.73 M2 CRP (08/22/2024) ???C-Reactive Protein - 22.6 mg/dL Culture Throat Grp A Strep (08/21/2024) ???Beta Strep Gp A Specimen Source - THROAT SWAB???Beta Strep Gp A Culture - NEGATIVE D Dimer (08/17/2024) ???D-Dimer - 5.64 mg/L FEU Electrolytes (08/17/2024) ???Sodium - 145 mmol/L???Potassium - 4.1 mmol/L???Chloride - 112 mmol/L???Bicarbonate Level - 16 mmol/L???Anion Gap - 17 ESR (08/22/2024) ???Sed Rate - 53 mm/hr Glucose Fluid (08/17/2024) ???Glucose, Fluid - 54 mg/dL Glucose Level (08/17/2024) ???Glucose Level - 163 mg/dL GLUCOSE POC (08/17/2024) ???Glucose, POC - 173 mg/dL GLUCOSE POC CARTRIDGE (08/17/2024) ???Glucose (POC) POC Cartridge - 164 Gram Stain Result (08/17/2024) ???Gram Stain Isolate 1 - Comment???Gram Stain Isolate 2 - No organisms seen HEMATOCRIT POC CARTRIDGE (08/17/2024) ???Hematocrit (POC) POC Cartridge - 31 % HEMOGLOBIN POC CARTRIDGE (08/17/2024) ???Hemoglobin (POC) POC Cartridge - 10.5 Gm/dL High Sensitivity Troponin T (08/17/2024) ???High Sensitivity Troponin (HSTnT) - 238 ng/L Ionized Calcium (08/17/2024) ???Calcium, Ionized pH Corrected - 1.02 mmol/L LDH (08/17/2024) ???LDH - 249 units/L LDH Fluid (08/17/2024) ???LDH, Fluid - 407 units/L LFT's (08/22/2024) ???Protein, Total - 5.7 Gm/dL???Albumin - 2.7 Gm/dL???Alkaline Phosphatase - 74 units/L???AST (SGOT) - 15 units/L???ALT (SGPT) - 15 units/L???Bilirubin, Total - 0.5 mg/dL???Bilirubin, Direct - 0.2 mg/dL???Bilirubin, Indirect - 0.3 mg/dL Magnesium Level (08/22/2024) ???Magnesium - 1.8 mg/dL Mg Level (08/24/2024) ???Magnesium - 1.9 mg/dL pH Fluid (08/17/2024) ???Fluid pH - 7.23 Phosphorus Level (08/24/2024) ???Phosphorus - 2.9 mg/dL POTASSIUM POC CARTRIDGE (08/17/2024) ???Potassium (POC) POC Cartridge - 3.9 mmol/L Procalcitonin Level (08/22/2024) ???Procalcitonin - 0.29 ng/mL Protein Fluid (08/17/2024) ???T. Protein, Fluid - 4.0 Gm/dL SODIUM POC CARTRIDGE (08/17/2024) ???Sodium (POC) POC Cartridge - 142 mmol/L TOTAL PROTEIN (08/18/2024) ???Protein, Total - 5.8 Gm/dL TSH (08/22/2024) ???TSH - 0.59 uIU/mL TSH WITH REFLEX TO FT4 (08/17/2024) ???TSH - 1.22 uIU/mL Type and Screen (08/17/2024) ???Blood Type - A Negative???Antibody Screen - Negative VBG POC CARTRIDGE (08/17/2024) ???pH Venous (POC) POC Cartridge - 7.31???pCO2 Venous (POC) POC Cartridge - 31.8 mm Hg???pO2 Venous(POC) POC Cartridge - 25 mm Hg???Est Bicarbonate (POC) POC Cartridge - 16.2 mmol/L???% O2 Sat Venous (POC) POC Cartridge - 41???Specimen Type - Blood Gas - VENOUS You will be contacted within 72 hours with your results. Allergies (NKA means No Known Allergies) NKA Problems Active Problems??(7) Atrioventricular block, second degree?? Essential hypertension?? Exudative pleural effusion on right?? GERD - Gastro-esophageal reflux disease?? History of prostate cancer?? Hyperlipidemia?? Obese class I?? Education Materials Below is the list of Educational Leaflet Providered with your Discharge Instructions. Valuables and Belongings I fully understand and agree that [facility] accepts no responsibility for all my personal property including clothing, toilet articles, radios, jewelry, dentures, hearing aids, rings, money, or any other property that is in my possession or is brought to me after admission. I understand certain valuables may be placed in a hospital safe for a short period of time. I understand that the hospital is not liable for loss or damage due to accident, fire, or other natural occurrence while said property is in the safe. I accept full responsibility for any personal property that I keep with me, and will not hold the hospital responsible in case of loss or disappearance. I acknowledge that i have been encouraged to send valuables and belongings home. ?? No Valuables/Belongings: No valuables/belongings present Review of Valuable and Belonging List: With witness Possessions released to: no personal devices Date for Pt to Sign Valuables/Belongings: 08/20/24 18:09:00 ?? Other Discharge Information ? Case Management Discharge Plan?? Discharge Plan?? Discharge Agency Information?? Discharge Level of Care at Discharge: [facility] Service Comments #1: Ambulance arranged for [facility] transfer at 530pm Discharge Transportation Arranged: [facility] [address] [facility] ??[phone] ?? Mode of Transportation Arranged: Ambulance ?? Discharge Arranged Transport Date/Time: 08/24/24 17:30:00 ? Pulmonary Rehab Status?? Pulmonary Rehab Discharge Status?? Respiratory Rate: 20 br/min ? Common Emergency Awareness Tips IS IT A STROKE? Act FAST and Check for these signs: FACE Does the face look uneven? ARM Does one arm drift down? SPEECH Does their speech sound strange? TIME Call at any sign of stroke ?? Heart Attack Signs Chest discomfort: Most heart attacks involve discomfort in the center of the chest and lasts more than a few minutes, or goes away and comes back. It can feel like uncomfortable pressure, squeezing, fullness or pain. Discomfort in upper body: Symptoms can include pain or discomfort in one or both arms, back, neck, jaw or stomach. Shortness of breath: With or without discomfort. Other signs: Breaking out in a cold sweat, nausea, or lightheaded. Remember, MINUTES DO MATTER. If you experience any of these heart attack warning signs, call to get immediate medical attention! ?? Smoking can increase your chances of developing chronic health problems and can cause harmful effects to other family members in your house. If you smoke, you are strongly encouraged to quit. Please call [facility] [employer] works Link at [phone] or [phone] ([phone]) or log in to [email or web address] for referrals to smoking cessation programs. ?? 802 Suicide & Crisis Lifeline is available 14/04 if you or someone you know needs to find a reason to keep living. By calling 173 you'll be connected to a skilled, trained counselor at a crisis center in your area. INPATIENT DISCHARGE INSTRUCTIONS SIGNATURE PAGE NATO SCHROEDER Location:[facility] Registration Date and Time:08/17/2024 12:33 EST Primary Care Physician: Not on Staff, PCP Attending Physician: Lukasz MUSTAFA, [facility], I NATO SCHROEDER, have received the above patient education materials/instructions and have verbalized understanding. If ambulance or transport services are being used I further acknowledge being given a choice of service. ?? If you need to contact me, please call me at this number: . Patient/Senior Project Architect Name: Patient/Senior Project Architect Signature: Relationship to Patient: Witness Name/Signature: Date: Patient Care team information Care Team Personnel Name: Gopal Farr RN Position: [facility] RN Member Role: Primary Care Nurse Name: Sherita Giraldo RN Position: [facility] RN Member Role: Primary Care Nurse Name: Lucas Dhillon RN Position: [facility] RN Member Role: Primary Care Nurse Name: Not on Staff, PCP Position: [facility] Physician (General Medicine) Member Role: PCP Name: Amina Fleming RN Position: [facility] RN Member Role: Primary Care Nurse Name: Claudine Sahu RN Position: [facility] RN Member Role: Primary Care Nurse Insurance Providers Guarantor name: [employer] Information #: 2 Payer: MEDICARE PART B OUTPT Member Number: [id number] Policy Number: [employer] Group Number: [employer] Information #: 1 Payer: MEDICARE A INPT 25 Member Number: [id number] Policy Number: Group Number:
--- OUTSIDE RECORDS SUMMARY | 2024-09-07 05:54 | XMS_ITS | Patient Health Record ---
Author Organization [facility] [place] Address [address] [place] [address] Care Team Providers Care Rn Case Manager Name Role Phone Zion Burgos Primary Care Provider Elan Hill Unavailable [phone] Allergies No Known Allergies Reason For Referral No Information Medications Medication SIG (Take, Route, Frequency, Duration) Notes Start Date End Date Status Lisinopril 2.5 MG 1 tablet Orally Once a day for 30 day(s) Active Ezetimibe 10 MG 1 tablet Orally Once a day for 30 day(s) Active Aspirin 325 MG 1 tablet Orally Once a day for 30 day(s) Active Ciclopirox Olamine 0.77 % 1 application Externally Twice a day for 30 days Active Tylenol 325 MG 1 tablet as needed O rally every 4 hrs Active Metoprolol Succinate 25 MG 1 capsule Ora lly Once a day for 30 day(s) Active Lipitor 80 MG 1 tablet Orally Once a day for 30 day(s) Active Social History Tobacco Use: Social History Observation Description Date Details (start date - stop date) Former Smoker NA - NA Tobacco Use/Smoking Question Answer Notes Are you a: former smoker Additional Findings: Tobacco Non-User Current no n-smoker Alcohol Screen Question Answer Notes Did you have a drink contain ing alcohol in the past year? Yes How often did you have a dri nk containing alcohol in the past year? Monthly or less (1 point) Points 1 Interpretation Negative Tobacco use other than smoking: Question Answer Notes Are you an other tobacco user? 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, with unspecified presence of clinical manifestation (I70.203) Active confirmed Vital Signs Height 5ft 6in in 07/15/2024 Weight 197 lbs 07/15/2024 BMI 31.79 kg/m2 07/15/2024 Procedures Procedure Date Ordered Date Performed Result Body Sit e 17890-YWBPBYQ NAIL, 6 OR MORE 10/09/2023 N/A 41110-MUUC SKIN LESIONS, 2 TO 4 10/09/2023 N/A 68766-GJCBJTT NAIL, 6 OR MORE 01/08/2024 N/A 14617-XZZZ SKIN LESIONS, 2 TO 4 01/08/2024 N/A 68023-RRYYKLE NAIL, 6 OR MORE 04/08/2024 N/A 85131-QOKB SKIN LESIONS, 2 TO 4 04/08/2024 N/A 95889-UKVSPYO NAIL, 6 OR MORE 07/15/2024 N/A 31118-DRQN SKIN LESIONS, 2 TO 4 07/15/2024 N/A Encounters Encounter Location Date Provider Diagnosis [address] [address] 10/09/2023 Elan Ellington 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, with unspecified presence of clinical manifestation I70.203 ; Onychomycosis B35.1 ; Pain of toe of right foot M79.674 and Pain of toe of left foot M79.[address] [address] 01/08/2024 Elan Ellington 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, with unspecified presence of clinical manifestation I70.203 ; Onychomycosis B35.1 ; Pain of toe of right foot M79.674 and Pain of toe of left foot M79.[address] [address] 04/08/2024 Elan Ellington 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, with unspecified presence of clinical manifestation I70.203 ; Onychomycosis B35.1 ; Pain of toe of right foot M79.674 ; Pain of toe of left foot M79.675 and Tinea pedis of both feet B35.[address] [place] [address] 07/15/2024 Elan Ellington 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, with unspecified presence of clinical manifestation I70.203 ; Onychomycosis B35.1 ; Pain of toe of right foot M79.674 ; Pain of toe of left foot M79.675 and Tinea pedis of both feet B35.3 [facility] [place] [address] [place] [address] 04/12/2024 Elan Ellington Assessments Encounter Date Diagnosis (ICD Code) Assessment Notes Treatment Notes Treatment Clinical Notes Section Notes 10/09/2023 Onychomycosis (ICD-10 - B35.1) 10/09/2023 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, with unspecified presence of clinical manifestation (ICD-10 - I70.203) 01/08/2024 Onychomycosis (ICD-10 - B35.1) 01/08/2024 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, with unspecified presence of clinical manifestation (ICD-10 - I70.203) 04/08/2024 Onychomycosis (ICD-10 - B35.1) 04/08/2024 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, with unspecified presence of clinical manifestation (ICD-10 - I70.203) 07/15/2024 Onychomycosis (ICD-10 - B35.1) 07/15/2024 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, with unspecified presence of clinical manifestation (ICD-10 - I70.203) 07/15/2024 Pain of toe of right foot (ICD-10 - M79.674) 01/08/2024 Pain of toe of right foot (ICD-10 - M79.674) 04/08/2024 Pain of toe of right foot (ICD-10 - M79.674) 10/09/2023 Pain of toe of right foot (ICD-10 - M79.674) 10/09/2023 Pain of toe of left foot (ICD-10 - M79.675) 01/08/2024 Pain of toe of left foot (ICD-10 - M79.675) 04/08/2024 Pain of toe of left foot (ICD-10 - M79.675) 07/15/2024 Pain of toe of left foot (ICD-10 - M79.675) 04/08/2024 Tinea pedis of both feet (ICD-10 - B35.3) 07/15/2024 Tinea pedis of both feet (ICD-10 - B35.3) Plan Of Treatment Pending Test Test Name Order Date 38441-FJTUMRR NAIL, 6 OR MORE 12/18/2022 92366-BABHTOC NAIL, 6 OR MORE 04/10/2023 77633-FSAIMAL NAIL, 6 OR MORE 07/10/2023 17095-HZFGLPT NAIL, 6 OR MORE 10/09/2023 94646-RGOOUNR NAIL, 6 OR MORE 01/08/2024 05240-HGUJCOW NAIL, 6 OR MORE 04/08/2024 68247-FPMPCMB NAIL, 6 OR MORE 07/15/2024 60220-Orwmlaoh Plate 04/10/2023 84118-FUEV SKIN LESIONS, 2 TO 4 07/15/20 42046-GMVB SKIN LESIONS, 2 TO 4 04/08/20 63896-TFCR SKIN LESIONS, 2 TO 4 01/08/20 36451-OPYX SKIN LESIONS, 2 TO 4 10/09/19 52983-FYUW SKIN LESIONS, 2 TO 4 07/10/20 47195-EZUU SKIN LESIONS, 2 TO 4 04/10/20 24924-MAFM SKIN LESIONS, 2 TO 4 12/19/19 Next Appt Details Provider Name:Elan Ellington , 10/18/2024 10:30:00 AM, [address] [address], [place], [address], Insurance Providers Payer Name Payer Address Payer Phone Subscriber Number Group Number Insured Name Patient Relationship to Insured Coverage Start Date Coverage End Date Medicare National [facility] [address] [facility] [address] [id number] Nato Fernández Self - patient is the insured [employer] [address] [place] [address] [id number] Nato Fernández Self - patient is the insured Medical (General) History Medical History History ICD Code Arthritis CAD (Cholesterol) Cancer High blood pressure Surgical History Surgery Date(Month/Year) carotid artery 2018 Hospitalization History Reason Date(Month/Year) oncologist, prostate cancer 10/2022
--- OUTSIDE RECORDS SUMMARY | 2024-09-07 05:54 | XMS_ITS ---
Author Organization [facility] Address [address] [place] [address] Care Team Providers Care Hearing Aide Technician Name Role Phone Zion Burgos Primary Care Provider Elan Hill Unavailable [phone] REASON FOR VISIT rs appt 07/14/24 Encounters Encounter Location Date Provider Diagnosis [facility] [address] [place] [address] 04/12/2024 Elan Ellington Plan Of Treatment Next Appt Details Provider Name:Elan Ellington , 10/18/2024 10:30:00 AM, [address] [facility], [address], [place], [address], Progress Notes * Nato SCHROEDERDOB:[birth year] (89 yo M)Acc No.[id number]:04/12/2024 Patient:?Kane Schoredermond :1935???Age:89 Y???Sex:Male [place], [address] * true * Date:? Generated for Sreedhari zakiya/Jackie/eTransmitting on:?09/07/2024 01:15 AM EST
--- OUTSIDE RECORDS SUMMARY | 2024-09-07 05:54 | XMS_ITS ---
Author Organization [facility] twila [place] Address [address] [place] [address] Care Team Providers Care Broadcast Operations Engineer Name Role Phone Zion Burgos Primary Care Provider Elan Hill Unavailable [phone] Allergies No Known Allergies REASON FOR VISIT At Risk Footcare, Painful Nail(s) aggrevated by shoes and causing difficulty standing/walking., Skin Problem Medications Medication SIG (Take, Route, Frequency, Duration) Notes Start Date End Date Status Lisinopril 2.5 MG 1 tablet Orally Once a day for 30 day(s) Active Ezetimibe 10 MG 1 tablet Orally Once a day for 30 day(s) Active Aspirin 325 MG 1 tablet Orally Once a day for 30 day(s) Active Metoprolol Succinate 25 MG 1 capsule Ora lly Once a day for 30 day(s) Active Lipitor 80 MG 1 tablet Orally Once a day for 30 day(s) Active Ciclopirox Olamine 0.77 % 1 application Externally Twice a day for 30 days Active Tylenol 325 MG 1 tablet as needed O rally every 4 hrs Active Social History Tobacco Use: Social History [...] Are you an other tobacco user? No Vital Signs Height 5ft 6in in 07/15/2024 Weight 197 lbs 07/15/2024 BMI 31.79 kg/m2 07/15/2024 Procedures Procedure Date Ordered Date Performed Result Body Sit e 75010-ASPRKOB NAIL, 6 OR MORE 07/15/2024 N/A 48236-ATDC SKIN LESIONS, 2 TO 4 07/15/2024 N/A Encounters Encounter Location Date Provider Diagnosis [facility] [address] [place] [address] 07/15/2024 Elan Ellington Atherosclerosis of catawba artery of both lower extremities, with unspecified presence of clinical manifestation I70.203 ; Onychomycosis B35.1 ; Pain of toe of right foot M79.674 ; Pain of toe of left foot M79.675 and Tinea pedis of both feet B35.3 Assessments Encounter Date Diagnosis (ICD Code) Assessment Notes Treatment Notes Treatment Clinical Notes Section Notes 07/15/2024 Atherosclerosis of catawba artery of both lower extremities, with unspecified presence of clinical manifestation (ICD-10 - I70.203) 07/15/2024 Onychomycosis (ICD-10 - B35.1) 07/15/2024 Pain of toe of right foot (ICD-10 - M79.674) 07/15/2024 Pain of toe of left foot (ICD-10 - M79.675) 07/15/2024 Tinea pedis of both feet (ICD-10 - B35.3) Plan Of Treatment Pending Test Test Name Order Date 44235-QLFZKAH NAIL, 6 OR MORE 07/15/2024 91269-OKPB SKIN LESIONS, 2 TO 4 07/15/20 Next Appt Details Follow Up: prn, Reason: Provider Name:Elan Ellington , 10/18/2024 10:30:00 AM, [facility] [address], [place], [address], Procedure Notes * Category Sub-Category Detail Notes Debride Nail 6-10 Nail debridement Performance o f this nail treatment by a nonprofessional would put this patients foot and overall health at risk. Therefore, nail debridement was performed extensively to reduce/remove overall nail length, girth, thickness, subungual debris, and necrotic tissue, by manual and/or electrical means through the use of a nail nipper and/or dremel-type grinder machine setter, to a more viable healthy nail plate or bed tissue 6-10. Silver nitrate used for any petechial bleeding as necessary. Definitive antifungal treatment options have been reviewed and discussed with the patient. The patient chooses, no pharmaceutical tx - 9[address]65 Keratoma Treatment Parring or Cutting o f Benign Hyperkeratotic Lesion(s) (-56) 2-4 Lesions - The Benign hyperkeratotic lesions, as described above were pared, and/or cut utilizing a sterile 15 blade, tissue nippers, and/or dremel - 11105 , Q8 Progress Notes * Nato SCHROEDERDOB:[birth year] (89 yo M)Acc No.[id number]:07/15/2024 Progress Note Patient:?Nato Schroeder Provider:?Elan Ellington DPM :1935???Age:89 Y???Sex:Male Juan Francisco e:07/15/2024 Address:[address] [place], [place] [id number] Pcp:Zion Burgos Subjective: * Chief Complaints: * ???At Risk FootcarePainful N ail(s) aggrevated by shoes and causing difficulty standing/walking.Skin Problem * HPI: ???At Risk footcare:?Pt States Last PCP Visit:?Date?07/13/2024 ???Skin problems:?Treatments:?Medication (Ciclopirox Olamine 0.77 Cream) , states adherence to recommended treatment application.? * ROS:?General/Constitutional:?Nausea?denies.?Vomiting?denies.?Hunger Thirst?denies.?Loss appetite?denies.?Chills?denies.?Fatigue?denies.?Fever?denies.?Night Sweats?denies.?Unexplained weight loss?denies.?Unexplained weight gain?denies.?HEENTM:?Dentures?denies.?Dizziness?denies.?Glasses/contacts?denies.?Retinopathy?de nies.?Blurred/double vision?denies.?TMJ?denies.?Discharge/drainage?denies.?Implants?denies.?Sore throat?denies.?Dental implants?denies.?Hard of hearing ?admits.?Difficulty chewing/swallowing/speaking?denies.?Nose bleeds?denies.?Sore mouth?denies.?Respiratory:?On Oxygen?denies.?Pneumonia/pleurisy?denies.?Bronchitis?denies.?Emphysema?denies.?C oughing?denies.?Cough blood?denies.?Shortness of breath?denies.?Wheezing?denies.?Cardiovascular:?Pacemaker?denies.?MVP?denies.?WPW?denies.?CHF?denies.?Heart attack?denies.?Septal defect?denies.?Rapid beat?denies.?Chest pain ?denies.?Atrial Fib.?denies.?Murmur/Palpitations?denies.?Gastrointestinal:?Hemorrhoids?denies.?Stomach/Abdominal pain?denies.?Dark blood stool?denies.?Irritable bowel ?denies.?Constipation?denies.?Diarrhea?denies.?Hematology:?Swelling?admits.?Clots?denies.?Varicose Veins?denies.?Bruising?admits, on aspirin.?Bleeding problem?admits, on anticoagulants.?Genitourinary:?Blood urine?denies.?Frequent/Painfu/urination/bladder control?denies.?Kidney stones?denies.?Infection (UTI)?denies.?Nephropathy?denies.?sex trans dis (STD)?denies.?Prostate?admits.?Musculoskeletal:?Hammertoes?denies.?Bunions?admits.?Back Pain?denies.?Muscle Cramps/ Resting?denies.?Muscle cramps / walking?denies.?Generalized aches and pains?denies.?Weakness?denies.?Integ.:?Saldana?denies.?Scars?denies.?Corns/calluses?admits.?Ingrown nails?admits.?Painful nails?admits.?Open Sores?denies.?Rashes?denies.?Neurologic:?Difficulty sleeping?denies.?Brain disorder?denies.?Numbness?denies.?Balance trouble?denies.?Confusion?denies.?Fainting/blackouts?denies.?Tingling?denies.?Tr emors?denies.? * Medical History:? * Surgical History:?kesha stein 2018 * Hospitalization/Major Diagno stic Procedure:?oncologist, prostate cancer 10/2022 * Family History:?Mother: dece ased, diagnosed with Family history of arthritis, Unspecified essential hypertension.?Father: , diagnosed with Other malignant neoplasm of unspecified site.?Spouse: alive.? * Social History:?Tobacco Use:?Tobacco Use/Smoking?Are you a:?former smoker ?Additional Findings: Tobacco Non-User?Current non-smoker ?Tobacco use other than smoking?Are you an other tobacco user??No ???Drugs/Alcohol:?Drugs?Have you used drugs other than those for medical reasons in the past 12 months??No ?Alcohol Screen?Did you have a drink containing alcohol in the past year??Yes ?How often did you have a drink containing alcohol in the past year??Monthly or less (1 point) ?Points?1 ?Interpretation?Negative ???Miscellaneous:?Caffeine: yes, 2-3 cups per day. ?Children: yes. ?no Exercise. ?Marital status: . ?Occupation: Retired. * Medications:?TakingCiclopiro x Olamine 0.77 % Cream 1 application Externally Twice a dayAspirin 325 MG Tablet 1 tablet Orally Once a dayEzetimibe 10 MG Tablet 1 tablet Orally Once a dayLisinopril 2.5 MG Tablet 1 tablet Orally Once a dayLipitor 80 MG Tablet 1 tablet Orally Once a dayMetoprolol Succinate 25 MG Capsule ER 24 Hour Sprinkle 1 capsule Orally Once a dayTylenol 325 MG Tablet 1 tablet as needed Orally every 4 hrsMedication List reviewed and reconciled with the patientTaking Ciclopirox Olamine 0.77 % Cream 1 application Externally Twice a dayTaking Aspirin 325 MG Tablet 1 tablet Orally Once a dayTaking Ezetimibe 10 MG Tablet 1 tablet Orally Once a dayTaking Lisinopril 2.5 MG Tablet 1 tablet Orally Once a dayTaking Lipitor 80 MG Tablet 1 tablet Orally Once a dayTaking Metoprolol Succinate 25 MG Capsule ER 24 Hour Sprinkle 1 capsule Orally Once a dayTaking Tylenol 325 MG Tablet 1 tablet as needed Orally every 4 hrsMedication List reviewed and reconciled with the patient * Allergies:?N.K.D.A.yes[Aller williames Verified] Objective: * Vitals:?Ht: 5ft 6in, Wt:197, BMI: 31.79, Shoe size:9, Wt-k.36 kg. * Examination: ???Vascular: ?DP PULSES(B):? 0/4, B/L.?PT PULSES(B):? 0/4, B/L.?CAPILLARY FILL TIME:? delayed, all digits, B/L.?TROPHIC CONDITION-TEXTURE/ELASTICITY/TURGOR/HAIR GROWTH(B):? decreased, with sparse to absent hair growth, B/L.?TEMPERTURE GRADIENT(C):? decreased, cool to cool, proximal to distal, B/L.?PIGMENTATION:?rubrous, B/L.?EDEMA(C):?1/4 , non-pitting , without aching pain , B/L , Leg(s).?CLAUDICATION(C):?denies, B/L.?REST PAIN:?denies, B/L.?Nails: ?NAILS are:? Elongated, overgrown, dystrophic, lytic, greater than 3mm thick, discolored and friable with crumbly malodorous subungual debris, with pain on palpation, TA, T3, T4, 1-5 Right foot.?Dermatologic: ?SKIN FINDINGS:?Skin exam reveals Keratotic lesion(s) located at , SUB MTH (s) , 5 , B/L , Skin shows approximately 60-70% LESS, sign(s) of, erythema, scaling, in a moccasin fashion, no fissure(s) present, B/L.? Assessment: * Assessment: 1.?Onychomycosis - B35.1?2.? Atherosclerosis of catawba artery of both lower extremities, with unspecified presence of clinical manifestation - I70.203?3.?Pain of toe of right foot - M79.674?4.?Pain of toe of left foot - M79.675?5.?Tinea pedis of both feet - B35.3, Acute problem, Stable,Response to treatment - Improvement? Plan: * Treatment: 2.?Atherosclerosis of catawba artery of both lower extremities, with unspecified presence of clinical manifestation?Procedure: 71758-RAOD SKIN LESIONS, 2 TO 4 * Procedures:?Debride Nail 6-10:?Nail debridement?Performance of this nail treatment by a nonprofessional would put this patients foot and overall health at risk. Therefore, nail debridement was performed extensively to reduce/remove overall nail length, girth, thickness, subungual debris, and necrotic tissue, by manual and/or electrical means through the use of a nail nipper and/or dremel-type grinder machine setter, to a more viable healthy nail plate or bed tissue 6-10. Silver nitrate used for any petechial bleeding as necessary. Definitive antifungal treatment options have been reviewed and discussed with the patient. The patient chooses, no pharmaceutical tx - 22309.?Keratoma Treatment:?Parring or Cutting of Benign Hyperkeratotic Lesion(s)?(-56) 2-4 Lesions - The Benign hyperkeratotic lesions, as described above were pared, and/or cut utilizing a sterile 15 blade, tissue nippers, and/or dremel - 96349 , Q8.? * Procedure Codes:?06734 DEBRI DE NAIL, 6 OR MORE, Modifiers: XS 66527 TRIM SKIN LESIONS, 2 TO 4, Modifiers: XS , Q8 * Preventive Medicine:? ??Counseling:?Discussion:?-12: Office or other outpatient visit for the evaluation and management of an established patient, which required a medically appropriate history and/or examination and STRAIGHTFORWARD level of MEDICAL DECISION MAKING, 1 SELF-LIMITED OR MINOR PROBLEM, MINIMAL- NO AMOUNT/COMPLEXITY OF DATA TO BE REVIEWED/ANALYZED, AND MINIMAL RISK OF COMPLICATION/MORBIDITY. The visit on the day of the encounter encompassed interpreting the data and educating the patient as to the nature of their condition, treatment options available according to their individual PMH, meds, allergies, and overall health/living conditions, as well as any potential risks or complications that may occur from a failure to adhere to, and participate in, the recommended course of therapy. The discussion included a complete verbal, and/or written explanation of the examination results, any x-rays taken, the proposed diagnosis, and outline of the treatment plan. A schedule for future care needs was also explained. The patient verbalized an understanding of the instructions at this time and agreed to be an active participant in their treatment. If the patient should think of any questions or concerns after the visit, I have encouraged the patient to call the office.?Tinea Pedis:?Given recent successful results to treatment, The patient is to cont the rx cream as directed.? * Follow Up:?prn * Images: * Sign off status: Completed true * Provider:?Elan Ellington DPM Date:?2023 Generated for Eloise sigala/Faxing/eTransmitting on:?09/07/2024 01:15 AM EST History and Physical Notes * HPI (History of Present Illness) Category Sub-Category Detail Notes Category Not es Skin problems Treatments: Medication (Cicl opirox Olamine 0.77 Cream) , states adherence to recommended treatment application At Risk footcare Pt States Last PCP Visit: Date: 07/13/2024 Examination Category Sub-Category Detail Notes Category Not es Dermatologic SKIN FINDINGS: Skin exam reveal s Keratotic lesion(s) located at , SUB MTH (s) , 5 , B/L , Skin shows approximately 60-70% LESS, sign(s) of, erythema, scaling, in a moccasin fashion, no fissure(s) present, B/L Vascular DP PULSES(B): 0/4, B/L PT PULSES(B): 0/4, B/L CAPILLARY FILL TIME: delayed, all digits , B/L TEMPERTURE GRADIENT(C): decreased, cool to cool, proximal to distal, B/L TROPHIC CONDITION-TEXTURE/ELASTICITY/TURGOR/HAIR GROWTH(B): decreased, with sparse to absent hair gr owth, B/L EDEMA(C): 1/4 , non-pitting , without aching pain , B/L , Leg(s) CLAUDICATION(C): denies, B/L REST PAIN: denies, B/L PIGMENTATION: rubrous, B/L Nails NAILS are: Elongated, overg rown, dystrophic, lytic, greater than 3mm thick, discolored and friable with crumbly malodorous subungual debris, with pain on palpation, TA, T3, T4, 1-5 Right foot
--- OUTSIDE RECORDS SUMMARY | 2024-09-07 05:54 | XMS_ITS ---
Author Organization [facility] Address [address] [place] [address] Care Team Providers Care Wire Stripper Name Role Phone Zion Burgos Primary Care Provider Elan Hill Unavailable [phone] Encounters Encounter Location Date Provider Diagnosis [facility] [address] [address] 07/14/2024 Elan Ellington Plan Of Treatment Next Appt Details Provider Name:Elan Ellington , 10/18/2024 10:30:00 AM, [address] [address], [place], [address], Progress Notes * Nato SCHROEDERDOB:[birth year] (89 yo M)Acc No.[id number]:07/14/2024 Progress Note Patient:?Nato SCHROEDER Provider:?Elan Ellington DPM :1935???Age:89 Y???Sex:Male Juan Francisco e:07/14/2024 [address], [place] Pcp:Zion Burgos Subjective: * Chief Complaints: * ??? * Medical History:? Objective: * Vitals:? Assessment: Plan: * Treatment: * Images: * The named appointment provid er may or may not be the originator of this progress note, and it is not deemed complete until electronically signed by the appointment provider. Sign off status: Pending * Provider:?Elan Ellington DPM Date:?2023 Generated for Eloise sigala/Jackie/Shashi on:?09/07/2024 01:15 AM EST
[2024-09-07 07:03] LABS: Alanine Aminotransferase 16 U/L (0-40); Albumin Level 2.5 g/dL (3.5-5.0); Alkaline Phosphatase 65 U/L (39-117); Anion Gap 11 (12-20); Aspartate Amino Transferase 27 U/L (5-37); Bilirubin Total 0.3 mg/dL (0.0-1.0); Blood Urea Nitrogen 25 mg/dL (9-16); Calcium 7.8 mg/dL (8.4-10.2); Carbon Dioxide 24 mmol/L (22-29); Chloride 111 mmol/L (96-108); Estimated Glomerular Filt Rate 51; Glucose Random 88 mg/dL (60-115); Potassium 4.4 mmol/L (3.3-5.1); Sodium 142 mmol/L (135-145); Total Protein 5.2 g/dL (6.5-8.0)
[2024-09-07 07:11] LABS: Basophils Percent Auto 0.6 % (0-2); Eosinophils Absolute Auto 0.1 X10*3/uL (0.0-0.4); Eosinophils Percent Auto 1.3 % (0-4); Hematocrit 29.8 % (42.0-52.0); Hemoglobin 9.5 g/dl (14.0-18.0); Imm Gran Abs Auto 0.03 X10*3/uL (0.00-0.03); Imm Gran Pct Auto 0.4 % (0.0-0.4); Lymphocytes Absolute Auto 1.9 X10*3/uL (1.2-4.9); Mean Corpuscular HGB Conc 31.9 g/dl (31.0-36.0); Mean Corpuscular Hemoglobin 29.6 pg (27.0-33.0); Mean Corpuscular Volume 92.8 fL (80.0-98.0); Mean Platelet Volume 10.8 fL (9.4-12.4); Monocytes Absolute Auto 0.9 X10*3/uL (0.1-1.2); Monocytes Percent Auto 12.6 % (2-11); Neutrophils Absolute Auto 4.1 x10*3/uL (2.0-8.3); Neutrophils Percent Auto 58.1 % (45-73); Platelet Count 333 X10*3/uL (160-400); Red Blood Count 3.21 X10*6/uL (4.60-5.80); Red Cell Distribution Width 14.6 % (11.0-16.0)
== END 2024-09-07 05:50 | disposition home or self-care (01) ==
LOC: HO.MMNH1L 05:49
PROVIDERS: Visit Provider Nurse Practitioner
DX: I10 Essential (primary) hypertension (principal)
CPT/HCPCS: 36415; 80053; 85025

== ENCOUNTER 2024-09-13 07:11 | Outpatient (REF) | payer MEDICARE, SELFPAY ==
[2024-09-13 06:17] LABS: MANUAL DIFF FLAG NO
[2024-09-13 06:53] LABS: Basophils Percent Auto 0.5 % (0-2); Eosinophils Absolute Auto 0.1 X10*3/uL (0.0-0.4); Eosinophils Percent Auto 1.1 % (0-4); Hematocrit 30.1 % (42.0-52.0); Hemoglobin 9.5 g/dl (14.0-18.0); Imm Gran Abs Auto 0.02 X10*3/uL (0.00-0.03); Imm Gran Pct Auto 0.3 % (0.0-0.4); Lymphocytes Absolute Auto 1.8 X10*3/uL (1.2-4.9); Lymphocytes Percent Auto 28.2 % (20-40); Mean Corpuscular HGB Conc 31.6 g/dl (31.0-36.0); Mean Corpuscular Hemoglobin 29.4 pg (27.0-33.0); Mean Corpuscular Volume 93.2 fL (80.0-98.0); Mean Platelet Volume 10.8 fL (9.4-12.4); Monocytes Absolute Auto 0.7 X10*3/uL (0.1-1.2); Monocytes Percent Auto 11.3 % (2-11); Neutrophils Absolute Auto 3.6 x10*3/uL (2.0-8.3); Neutrophils Percent Auto 58.6 % (45-73); Platelet Count 240 X10*3/uL (160-400); Red Blood Count 3.23 X10*6/uL (4.60-5.80); Red Cell Distribution Width 14.6 % (11.0-16.0); White Blood Count 6.2 X10*3/uL (4.8-10.8)
[2024-09-13 07:12] LABS: Anion Gap 11 (12-20); Blood Urea Nitrogen 19 mg/dL (9-16); Calcium 7.9 mg/dL (8.4-10.2); Carbon Dioxide 24 mmol/L (22-29); Chloride 113 mmol/L (96-108); Estimated Glomerular Filt Rate > 60; Glucose Random 83 mg/dL (60-115); Potassium 3.8 mmol/L (3.3-5.1); Sodium 144 mmol/L (135-145)
--- OUTSIDE RECORDS SUMMARY | 2024-09-13 07:14 | XMS_ITS ---
Author Organization [facility] twila Gilbert Address [address] [place] [address] Care Team Providers Care Teaching Young Name Role Phone Zion Burgos Primary Care Provider Elan Hill Unavailable [phone] Allergies No Known Allergies REASON FOR VISIT [...] Ordered Date Performed Result Body Sit e 41020-HKLAKEM NAIL, 6 OR MORE 07/15/2024 N/A 54651-GISB SKIN LESIONS, 2 TO 4 07/15/2024 N/A Encounters Encounter Location Date Provider Diagnosis [facility] [address] [place] [address] 07/15/2024 Elan Ellington Atherosclerosis of [place] artery of both lower extremities, with unspecified presence of clinical manifestation I70.203 ; Onychomycosis B35.1 ; Pain of toe of right foot M79.674 ; Pain of toe of left foot M79.675 and Tinea pedis of both feet B35.3 Assessments Encounter Date Diagnosis (ICD Code) Assessment Notes Treatment Notes Treatment Clinical Notes Section Notes 07/15/2024 Atherosclerosis of [place] artery of both lower extremities, with unspecified presence of clinical manifestation (ICD-10 - I70.203) 07/15/2024 Onychomycosis (ICD-10 - B35.1) 07/15/2024 Pain of toe of right foot (ICD-10 - M79.674) 07/15/2024 Pain of toe of left foot (ICD-10 - M79.675) 07/15/2024 Tinea pedis of both feet (ICD-10 - B35.3) Plan Of Treatment Pending Test Test Name Order Date 42434-UAHBVPU NAIL, 6 OR MORE 07/15/2024 86266-QPVH SKIN LESIONS, 2 TO 4 07/15/20 Next Appt Details Follow Up: prn, Reason: Provider Name:Elan Ellington , 10/18/2024 10:30:00 AM, [facility] [address], [place], [address], Procedure Notes * Category Sub-Category Detail Notes Debride Nail 6-10 Nail debridement Performance o f this nail treatment by a nonprofessional would put this patients foot and overall health at risk. Therefore, nail debridement was performed extensively to reduce/remove overall nail length, girth, thickness, subungual debris, and necrotic tissue, by manual and/or electrical means through the use of a nail nipper and/or dremel-type pulp grinder feeder, to a more viable healthy nail plate or bed tissue 6-10. Silver nitrate used for any petechial bleeding as necessary. Definitive antifungal treatment options have been reviewed and discussed with the patient. The patient chooses, no pharmaceutical tx - 73635 Keratoma Treatment Parring or Cutting o f Benign Hyperkeratotic Lesion(s) (-56) 2-4 Lesions - The Benign hyperkeratotic lesions, as described above were pared, and/or cut utilizing a sterile 15 blade, tissue nippers, and/or dremel - 35558 , Q8 Progress Notes * Nato SCHROEDERDOB:[birth year] (89 yo M)Acc No.[id number]:07/15/2024 Progress Note Patient:?aNto Schroeder Provider:?Elan Ellington DPM :1935???Age:89 Y???Sex:Male Juan Francisco e:07/15/2024 Address:[address] [place], [place] [id number] Pcp:Zion Burgos Subjective: * Chief Complaints: * [...] * Assessment: 1.?Onychomycosis - B35.1?2.? Atherosclerosis of [place] artery of both lower extremities, with unspecified presence of clinical manifestation - I70.203?3.?Pain of toe of right foot - M79.674?4.?Pain of toe of left foot - M79.675?5.?Tinea pedis of both feet - B35.3, Acute problem, Stable,Response to treatment - Improvement? Plan: * Treatment: 2.?Atherosclerosis of [place] artery of both lower extremities, with unspecified presence of clinical manifestation?Procedure: 16017-RRAE SKIN LESIONS, 2 TO 4 * Procedures:?Debride Nail 6-10:?Nail debridement?Performance of this nail treatment by a nonprofessional would put this patients foot and overall health at risk. Therefore, nail debridement was performed extensively to reduce/remove overall nail length, girth, thickness, subungual debris, and necrotic tissue, by manual and/or electrical means through the use of a nail nipper and/or dremel-type pulp grinder feeder, to a more viable healthy nail plate or bed tissue 6-10. Silver nitrate used for any petechial bleeding as necessary. Definitive antifungal treatment options have been reviewed and discussed with the patient. The patient chooses, no pharmaceutical tx - 25150.?Keratoma Treatment:?Parring or Cutting of Benign Hyperkeratotic Lesion(s)?(-56) 2-4 Lesions - The Benign hyperkeratotic lesions, as described above were pared, and/or cut utilizing a sterile 15 blade, tissue nippers, and/or dremel - 02202 , Q8.? * Procedure Codes:?95758 DEBRI DE NAIL, 6 OR MORE, Modifiers: XS 03580 TRIM SKIN LESIONS, 2 TO 4, Modifiers: [...] Ellington DPM Date:?2023 Generated for Eloise sigala/Faxing/eTransmitting on:?09/13/2024 07:14 AM EST History and Physical Notes * [...] fashion, no fissure(s) present, B/L Vascular DP PULSES (B): 0/4, B/L PT PULSES (B): 0/4, B/L CAPILLARY FILL TIME: delayed, all digits , B/L TEMPERTURE GRADIENT (C): decreased, cool to cool, proximal to distal, B/L TROPHIC CONDITION-TEXTURE/ELASTICITY/TURGOR/HAIR GROWTH (B): decreased, with sparse to absent hair gr owth, B/L EDEMA (C): 1/4 , non-pitting , without aching pain , B/L , Leg(s) CLAUDICATION (C): denies, B/L REST PAIN: denies, B/L PIGMENTATION: rubrous, B/L Nails NAILS are: Elongated, overg rown, dystrophic, lytic, greater than 3mm thick, discolored and friable with crumbly malodorous subungual debris, with pain on palpation, TA, T3, T4, 1-5 Right foot
--- OUTSIDE RECORDS SUMMARY | 2024-09-13 07:14 | XMS_ITS | Patient Health Record ---
Author Organization [facility] twila [place] Address [address] [place] [address] Care Team Providers Care Planing Machine Operator Name Role Phone Zion Burgos Primary Care Provider Elan Hill Unavailable [phone] Allergies No Known Allergies Reason For Referral [...] W/U Status Risk Notes Problem Atherosclerosis of [place] arteries of the extremities ([id number]) Atherosclerosis of [place] artery of both lower extremities, with unspecified presence of clinical manifestation (I70.203) Active confirmed Vital Signs Height 5ft 6in in 07/15/2024 Weight 197 lbs 07/15/2024 BMI 31.79 kg/m2 07/15/2024 Procedures Procedure Date Ordered Date Performed Result Body Sit e 74104-ZJYWMVF NAIL, 6 OR MORE 10/09/2023 N/A 30555-FEUX SKIN LESIONS, 2 TO 4 10/09/2023 N/A 30503-RJNKVPG NAIL, 6 OR MORE 01/08/2024 N/A 13118-BWWW SKIN LESIONS, 2 TO 4 01/08/2024 N/A 31417-FFQJNDG NAIL, 6 OR MORE 04/08/2024 N/A 03910-HBKI SKIN LESIONS, 2 TO 4 04/08/2024 N/A 77965-ZXSXNTT NAIL, 6 OR MORE 07/15/2024 N/A 11151-CNTI SKIN LESIONS, 2 TO 4 07/15/2024 N/A Encounters Encounter Location Date Provider Diagnosis [address] [address] 10/09/2023 Elan Ellington Atherosclerosis of [place] artery of both lower extremities, with unspecified presence of clinical manifestation I70.203 ; Onychomycosis B35.1 ; Pain of toe of right foot M79.674 and Pain of toe of left foot M79.[address] [address] 01/08/2024 Elan Ellington Atherosclerosis of [place] artery of both lower extremities, with unspecified presence of clinical manifestation I70.203 ; Onychomycosis B35.1 ; Pain of toe of right foot M79.674 and Pain of toe of left foot M79.[address] [address] 04/08/2024 Elan Ellington Atherosclerosis of [place] artery of both lower extremities, with unspecified presence of clinical manifestation I70.203 ; Onychomycosis B35.1 ; Pain of toe of right foot M79.674 ; Pain of toe of left foot M79.675 and Tinea pedis of both feet B35.[address] [place] [address] 07/15/2024 Elan Ellington Atherosclerosis of [place] artery of both lower extremities, with unspecified presence of clinical manifestation I70.203 ; Onychomycosis B35.1 ; Pain of toe of right foot M79.674 ; Pain of toe of left foot M79.675 and Tinea pedis of both feet B35.3 [facility] [place] [address] [place] [address] 04/12/2024 Elan Ellington Assessments Encounter Date Diagnosis (ICD Code) Assessment Notes Treatment Notes Treatment Clinical Notes Section Notes 10/09/2023 Onychomycosis (ICD-10 - B35.1) 10/09/2023 Atherosclerosis of [place] artery of both lower extremities, with unspecified presence of clinical manifestation (ICD-10 - I70.203) 01/08/2024 Onychomycosis (ICD-10 - B35.1) 01/08/2024 Atherosclerosis of [place] artery of both lower extremities, with unspecified presence of clinical manifestation (ICD-10 - I70.203) 04/08/2024 Onychomycosis (ICD-10 - B35.1) 04/08/2024 Atherosclerosis of [place] artery of both lower extremities, with unspecified presence of clinical manifestation (ICD-10 - I70.203) 07/15/2024 Onychomycosis (ICD-10 - B35.1) 07/15/2024 Atherosclerosis of [place] artery of both lower extremities, with unspecified [...] Treatment Pending Test Test Name Order Date 12414-RCYHUQT NAIL, 6 OR MORE 12/18/2022 41446-NCQFJGP NAIL, 6 OR MORE 04/10/2023 97322-GYJLTDF NAIL, 6 OR MORE 07/10/2023 95155-TBCPAAA NAIL, 6 OR MORE 10/09/2023 99274-IQFMPZT NAIL, 6 OR MORE 01/08/2024 24388-GGFRNSM NAIL, 6 OR MORE 04/08/2024 15694-HKLLMXX NAIL, 6 OR MORE 07/15/2024 58809-Hjitjhen Plate 04/10/2023 96727-CVAT SKIN LESIONS, 2 TO 4 07/15/20 71645-TYSH SKIN LESIONS, 2 TO 4 04/08/20 01575-ZLSZ SKIN LESIONS, 2 TO 4 01/08/20 35783-CHGM SKIN LESIONS, 2 TO 4 10/09/19 64416-BMCW SKIN LESIONS, 2 TO 4 07/10/20 62023-RYKB SKIN LESIONS, 2 TO 4 04/10/20 53108-KFEL SKIN LESIONS, 2 TO 4 12/19/19 Next Appt Details Provider Name:Elan Ellington , 10/18/2024 10:30:00 AM, [address] [address], [place], [address], Insurance Providers Payer Name Payer Address Payer Phone Subscriber Number Group Number Insured Name Patient Relationship to Insured Coverage Start Date Coverage End Date Medicare [facility] [address] [place] [address] [id number] Nato Fernández Self - patient is the insured [employer] [address] [place] [address] [id number] Nato Fernández Self - patient is the insured Medical (General) History Medical History History ICD Code Arthritis CAD (Cholesterol) Cancer High blood pressure Surgical History Surgery Date(Month/Year) carotid artery 2018 Hospitalization History Reason Date(Month/Year) oncologist, prostate cancer 10/2022
--- OUTSIDE RECORDS SUMMARY | 2024-09-13 07:14 | XMS_ITS ---
Author Organization [facility] Address [address] [place] [address] Care Team Providers Care Humanities Division Chair Name Role Phone Zion Burgos Primary Care Provider Elan Hill Unavailable [phone] Encounters Encounter Location Date Provider Diagnosis [facility] [address] [address] 07/14/2024 Elan Ellington Plan Of Treatment Next Appt Details Provider Name:Elan Ellington , 10/18/2024 10:30:00 AM, [address] [address], [place], [address], Progress Notes * Nato SCHROEDERDOB:[birth year] (89 yo M)Acc No.[id number]:07/14/2024 Progress Note Patient:?Nato SCHROEDER Provider:?Elan Ellington DPM :1935???Age:89 Y???Sex:Male Juan Francisco e:07/14/2024 [address] Pcp:Zion Burgos Subjective: * Chief Complaints: * ??? * Medical History:? Objective: * Vitals:? Assessment: Plan: * Treatment: * Images: * The named appointment provid er may or may not be the originator of this progress note, and it is not deemed complete until electronically signed by the appointment provider. Sign off status: Pending * Provider:?Elan Ellington DPM Date:?2023 Generated for Eloise sigala/Jackie/Shashi on:?09/13/2024 07:14 AM EST
--- OUTSIDE RECORDS SUMMARY | 2024-09-13 07:14 | XMS_ITS ---
Author Organization [facility] Address [address] [place] [address] Care Team Providers Care Document Processing Specialist Name Role Phone Zion Burgos Primary Care Provider Elan Hill Unavailable [phone] REASON FOR VISIT rs appt 07/14/24 Encounters Encounter Location Date Provider Diagnosis [facility] [address] [place] [address] 04/12/2024 Elan Ellington Plan Of Treatment Next Appt Details Provider Name:Elan Ellington , 10/18/2024 10:30:00 AM, [address] [facility], [address], [place], [address], Progress Notes * Nato SCHROEDERDOB:[birth year] (89 yo M)Acc No.[id number]:04/12/2024 Patient:?Kane Schroedermond :1935???Age:89 Y???Sex:Male Address:[place], [address] * true * Date:? Generated for Sreedhari zakiya/Jackie/eTransmitting on:?09/13/2024 07:14 AM EST
== END 2024-09-13 07:12 | disposition home or self-care (01) ==
LOC: HO.MMNH1L 07:11
PROVIDERS: Visit Provider Nurse Practitioner
DX: I10 Essential (primary) hypertension (principal)
CPT/HCPCS: 80048; 85025